=== PATIENT | male | born 1985 | race Caucasian/White ===

== ENCOUNTER 2016-08-10 11:11 | Inpatient (IN) | payer OTHER ==
[2016-08-10 11:34] VITALS: BMI 26.6
--- NOTE | 2016-08-10 13:40 | HP ---
CIWA Score - CIWA Score Nausea/Vomitin-Int. Nausea w/Dry Heave (AND DIARRHEA) Muscle Tremors: 4-Moderate,w/Arms Extend Anxiety: 4-Mod. Anxious/Guarded Agitation: 4-Moderately Restless Paroxysmal Sweats: 1-Minimal Palms Moist Orientation: 0-Oriented Tacttile Disturbances: 3-Moderate Itch/Numb/Burn Auditory Disturbances: 0-None Visual Disturbances: 0-None Headache: 0-None Present CIWA-Ar Total Score: 20 Admission [facility] - HPI Chief Complaint: DETOX TX FOR BENZO DEPENDENCE . Allergies/Adverse Reactions: Allergies Allergy/AdvReac Type Severity Reaction Status Date / Time No Known Allergies Allergy Verified 08/10/16 12:35 History of Present Illness: 31 Y/O MALE WITH A HX OF XANAX AND KLONOPIN AND CRACK/COCAINE AND MARIJUANA DEPENDENCE SEEKING DETOX TX. PT ON [facility]-MMTP 90 MG PO DAILY. Exam Limitations: No Limitations - Ebola screening Have you traveled outside of the country in the last 21 days: No Have you had contact with anyone from an Ebola affected area: No Have you been sick,other than usual withdrawal symptoms: No Do you have a fever: No - Review of Systems Constitutional: Chills, Night Sweats, Changes in sleep, Unintentional Wgt. Loss EENT: reports: Tearing, Nose Congestion, Dental Problems Respiratory: reports: SOB with Exertion (WHEN WALKING.) Cardiac: reports: Lightheadedness GI: reports: Diarrhea, Nausea, Vomiting, Indigestion, Abdominal cramping : reports: No Symptoms Reported Musculoskeletal: reports: Back Pain, Joint Pain, Muscle Pain Integumentary: reports: Lesions (GENERALIZED SKIN BREAKOUTS---WHEN USING CRACK/ COCAINE.) Neuro: reports: Seizure, Tremors, Unsteady Gait, Dizziness Endocrine: reports: No Symptoms Reported Hematology: reports: Anemia (NO MED) Psychiatric: reports: Orientated x3, Agitated, Anxious, Depressed (ON PROZAC) Other Systems: Reviewed and Negative Patient History - Patient Medical History Hx Anemia: No Hx Asthma: No Hx Chronic Obstructive Pulmonary Disease (COPD): No Hx Cancer: No Hx Cardiac Disorders: No Hx Congestive Heart Failure: No Hx Hypertension: Yes Hx Hypercholesterolemia: No Hx Pacemaker: No HX Cerebrovascular Accident: No Hx Seizures: Yes (xanax related last 01/21) Hx Diabetes: No Hx Gastrointestinal Disorders: No Hx Liver Disease: No Hx Genitourinary Disorders: No Hx Sexually Transmitted Disorders: No Hx Renal Disease (ESRD): No Hx Thyroid Disease: No Hx Human Immunodeficiency Virus (HIV): No (NEGATIVE HX last 05/23) Hx Hepatitis C: Yes (TREATED IN 2009) Hx Depression: Yes (ON PROZAC) Hx Suicide Attempt: Yes (tried to overdose at age 18 yrs old;DENIES CURRENT IDEATIONS) Hx Bipolar Disorder: No Hx Schizophrenia: No - Patient Surgical History Past Surgical History: Yes Hx Neurologic Surgery: No Hx Cataract Extraction: No Hx Cardiac Surgery: No Hx Lung Surgery: No Hx Breast Surgery: No Hx Breast Biopsy: No Hx Abdominal Surgery: No Hx Appendectomy: No Hx Cholecystectomy: No Hx Genitourinary Surgery: No Hx Section: No Hx Orthopedic Surgery: Yes (RIGHT CLAVICLE /CHEST DUE TO ABCESS) Other Surgical History: ADNOIDECTOMY AT 13 Y/O Anesthesia Reaction: No - PPD History Previous Implant?: Yes Documented Results: Negative w/o proof Implanted On Prior [facility] Admission?: Yes Date: 06/02/15 Results: 0 mm PPD to be Administered?: Yes - Reproductive History Patient is a Female of Child Bearing Age (11 -55 yrs old): No (MALE) - Smoking Cessation Smoking history: Current every day smoker Have you smoked in the past 12 months: Yes Aproximately how many cigarettes per day: 10 Hx Chewing Tobacco Use: No Initiated information on smoking cessation: Yes 'Breaking Loose' booklet given: 08/10/16 - Substance & Tx. History Hx Alcohol Use: No (DENIES) Hx Substance Use: Yes (XANAX/KLONOPIN/COCAINE/MARIJUANA) Substance Use Type: Alcohol, Cocaine, Marijuana Hx Substance Use Treatment: Yes ([facility]-MMTP/DETOX) - Substances Abused Alprazolam (Xanax) Route: Oral Frequency: Daily Amount used: 8-10MG Age of first use: 26 Date of Last Use: 08/09/16 Crack Route: Smoking Frequency: Daily Amount used: 1 GRAM Age of first use: 27 Date of Last Use: 08/09/16 Marijuana/Hashish Route: Smoking Frequency: 1-2 times per week Amount used: $5 Age of first use: 11 Date of Last Use: 08/09/16 Family Disease History - Family Disease History Family History: Denies Admission Physical Exam [facility] - Vital Signs Vital Signs: Vital Signs - 24 hr 08/10/16 11:32 Temperature 96.5 F L Pulse Rate 61 Respiratory 18 Rate Blood Pressure 133/81 - Physical General Appearance: Yes: Moderate Distress, Irritable, Anxious HEENTM: Yes: EOMI, Normocephalic, FRAN, Pharynx Normal Respiratory: Yes: Chest Non-Tender, Lungs Clear, Normal Breath Sounds, No Respiratory Distress Breast: Yes: Breast Exam Deferred Cardiology: Yes: Regular Rhythm, Regular Rate, S1, S2 Abdominal: Yes: Normal Bowel Sounds, Non Tender, Soft Genitourinary: Yes: Other (N/C) Extremities: Yes: Normal Range of Motion, Non-Tender, Tremors 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, Fully Oriented, Alert Integumentary: Yes: Dry, Warm Lymphatic: Yes: Within Normal Limits - Diagnostic (1) Marijuana dependence Current Visit: Yes Status: Acute (2) Nicotine dependence Current Visit: Yes Status: Chronic Qualifiers: Nicotine product type: cigarettes Substance use status: uncomplicated Qualified Code(s): F17.210 - Nicotine dependence, cigarettes, uncomplicated (3) Hepatitis C Current Visit: Yes Status: Chronic Qualifiers: Viral hepatitis chronicity: chronic (4) Hypertension Current Visit: Yes Status: Chronic Qualifiers: Hypertension type: essential hypertension Qualified Code(s): I10 - Essential (primary) hypertension (5) Low back pain Current Visit: Yes Status: Chronic Qualifiers: Back pain laterality: unspecified (6) Methadone maintenance therapy patient Current Visit: Yes Status: Chronic Comment: pt is on methadone 90mg last dose given today; pending verification (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
[2016-08-10] MEDS ORDERED: MAGNESIUM HYDROX 2400MG/30ML ORAL SUSPENSION 30 ML CUP PO PRN (13:51)
[2016-08-10] MEDS ORDERED: NICOTINE POLACRILEX 2 MG GUM BUC PRN (13:51)
[2016-08-10] MEDS ORDERED: MENTHOL/PHENOL 1 EACH UD MM PRN (13:51)
[2016-08-10] MEDS ORDERED: LOPERAMIDE HCL 2 MG CAPSULE PO PRN (13:51)
[2016-08-10] MEDS ORDERED: IBUPROFEN 400 MG TABLET (FP) PO PRN (13:51)
[2016-08-10] MEDS ORDERED: MAG HYDROX/AL HYDROX/SIMETH 30 ML UNIT-DOSE CUP PO PRN (13:51)
[2016-08-10] MEDS ORDERED: guaiFENesin/D-METHORPHAN HB 10 ML UNIT-DOSE CUPS PO PRN (13:51)
[2016-08-10] MEDS ORDERED: MAGNESIUM CITRATE 300 ML BOTTLE PO PRN (13:51)
[2016-08-10] MEDS ORDERED: P-EPHED 60MG/TRIPROLIDI 2.5MG TABLET PO PRN (13:51)
[2016-08-10] MEDS ORDERED: ACETAMINOPHEN 325 MG TABLET (FP) PO PRN (13:51)
[2016-08-10] MEDS ORDERED: diazePAM 5 MG TABLET PO ONE (14:38)
[2016-08-10 15:24] LABS: HIV 1 & 2 AB NEGATIVE; HIV 1 AGp24 NEGATIVE
[2016-08-10] MEDS: NICOTINE 14 MG/24 HOURS TOPICAL PATCH TD SCH (15:45)
[2016-08-10 16:25] LABS: URINE APPEARANCE CLEAR; URINE BILIRUBIN NEGATIVE (NEGATIVE); URINE BLOOD NEGATIVE (NEGATIVE); URINE COLOR YELLOW; URINE GLUCOSE (UA) NEGATIVE (NEGATIVE); URINE KETONE NEGATIVE (NEGATIVE); URINE LEUK ESTERASE NEGATIVE (NEGATIVE); URINE NITRITE NEGATIVE (NEGATIVE); URINE PROTEIN NEGATIVE (NEGATIVE); URINE UROBILINOGEN NEGATIVE E.U./dl (0.2-1.0)
--- NOTE | 2016-08-10 16:28 | CONSULT ---
[facility] Psychiatric Consult - Data Date of interview: 08/10/16 Admission source: [facility] Identifying data: This is 31 years old male with history of Bipolar Disorder intoxicated with: Cannabis, Crack, Xanax and Nicotine Substance Abuse History: - Smoking Cessation. Smoking history: Current every day smoker. Have you smoked in the past 12 months: Yes. Aproximately how many cigarettes per day: 10. Hx Chewing Tobacco Use: No. Initiated information on smoking cessation: Yes. 'Breaking Loose' booklet given: 08/10/16. - Substance & Tx. History. Hx Alcohol Use: No (DENIES). Hx Substance Use: Yes (XANAX/ KLONOPIN/COCAINE/MARIJUANA). Substance Use Type: Alcohol, Cocaine, Marijuana. Hx Substance Use Treatment: Yes ([email or web address]MMTP/DETOX). - Substances Abused. Alprazolam (Xanax). Route: Oral. Frequency: Daily. Amount used: 8-10MG. Age of first use: 26. Date of Last Use: 08/09/16. Crack. Route: Smoking. Frequency: Daily. Amount used: 1 GRAM. Age of first use: 27. Date of Last Use : 08/09/16. Marijuana/Hashish. Route: Smoking. Frequency: 1-2 times per week. Amount used: $5. Age of first use: 11. Date of Last Use: 08/09/16 Medical History: Hep C+, HTNM, LBP, Seizure history, MMTP 90mg per day Psychiatric History: Patient reports history of Bipolar disorder, history of PTSD, reports psychiatric hospitalization history with most recent admission on more then 10 years ago, reports currently taking: Gabapentin 400mg po tid. Prozac 40mg poqd. Clonodone 0,2 po bid Physical/Sexual Abuse/Trauma History: Denies Additional Comment: Gabapentin 400mg po tid. Prozac 40mg poqd. Clonodone 0,2 po bid Mental Status Exam - Mental Status Exam Alert and Oriented to: Person Cognitive Function: Fair Patient Appearance: Well Groomed Mood: Nervous, Anxious Affect: Mood Congruent Patient Behavior: Cooperative Speech Pattern: Appropriate Voice Loudness: Normal Thought Process: Goal Oriented Thought Disorder: Being Controlled Hallucinations: Denies Suicidal Ideation: Denies Homicidal Ideation: Denies Insight/Judgement: Fair Sleep: Difficulty falling asleep Appetite: Fair Muscle strength/Tone: Normal Gait/Station: Normal Additional Comments: Gabapentin 400mg po tid. Prozac 40mg poqd. Clonodone 0,2 po bid Psychiatric Findings - Problem List ([place] 1, 2,3) (1) Marijuana dependence Current Visit: Yes Status: Acute (2) Methadone maintenance therapy patient Current Visit: Yes Status: Chronic Comment: pt is on methadone 90mg last dose given today; pending verification (3) Nicotine dependence Current Visit: Yes Status: Chronic Qualifiers: Nicotine product type: cigarettes Substance use status: uncomplicated Qualified Code(s): F17.210 - Nicotine dependence, cigarettes, uncomplicated (4) Sedative/hypnotic withdrawal without complication Current Visit: Yes Status: Chronic (5) Substance or medication-induced sleep disorder, insomnia type Current Visit: No Status: Acute (6) Borderline personality disorder Current Visit: No Status: Chronic (7) PTSD (post-traumatic stress disorder) Current Visit: No Status: Chronic (8) Bipolar II disorder Current Visit: No Status: Suspected - Initial Treatment Plan Initial Treatment Plan: Gabapentin 400mg po tid. Prozac 40mg poqd. Clonodone 0 ,2 po bid
[2016-08-10] MEDS: diazePAM 5 MG TABLET PO PRN (20:42)
[2016-08-10] MEDS: diazePAM 5 MG TABLET PO SCH (22:55)
[2016-08-10] MEDS: THIAMINE HCL 100 MG TABLET (FP) PO SCH (22:55)
[2016-08-10] MEDS: cloNIDine HCL 0.1 MG TABLET PO SCH (22:59)
[2016-08-10] MEDS: GABAPENTIN 400 MG CAPSULE (FP) PO SCH (23:00)
[2016-08-10] MEDS: PROPRANOLOL HCL 20 MG TABLET PO SCH (23:00)
[2016-08-10] MEDS: PRAZOSIN HCL 5 MG CAPSULE PO SCH (23:01)
[2016-08-11] MEDS: diazePAM 5 MG TABLET PO SCH ×3 (05:20→22:47)
[2016-08-11] MEDS: GABAPENTIN 400 MG CAPSULE (FP) PO SCH ×3 (05:21→22:22)
[2016-08-11] MEDS: diazePAM 5 MG TABLET PO PRN ×4 (08:30→22:22)
[2016-08-11] MEDS ORDERED: METHADONE HCL 10 MG TABLET PO ONE (08:42)
[2016-08-11] MEDS ORDERED: METHADONE 80 MG, METHADONE 10 MG PO ONE (09:06)
[2016-08-11] MEDS ORDERED: METHADONE HCL 10 MG TABLET ONE (09:13)
[2016-08-11] MEDS ORDERED: METHADONE HCL 40 MG DISPERSABLE TABLET ONE (09:13)
[2016-08-11 09:15] LABS: MCH 29.7 pg (25.7-33.7); MCHC 33.7 g/dl (32.0-35.9); MEAN PLT VOLUME 9.9 fl (7.5-11.1); PLATELET COUNT 249 K/MM3 (134-434); RDW 13.1 % (11.9-15.9); WHITE BLOOD COUNT 7.1 K/mm3 (4.0-10.0)
[2016-08-11 09:21] LABS: ALBUMIN 3.5 g/dl (3.4-5.0); ANION GAP 9 (8-16); CALCIUM 9.6 mg/dL (8.5-10.1); CO2 28 mmol/L (21-32); GLUCOSE,RANDOM 128 mg/dL (74-106); SGOT/AST 93 U/L (15-37); SGPT/ALT 154 U/L (12-78)
[2016-08-11 09:23] LABS: ALK PHOS 135 U/L (45-117); BILIRUBIN,TOTAL 0.3 mg/dL (0.2-1.0); CREATININE 0.7 mg/dL (0.7-1.3); TOT PROT 8.8 g/dl (6.4-8.2)
[2016-08-11] MEDS: PRENATAL VITAMINS W/ FOLIC ACID TABLET (FP) PO SCH (10:10)
[2016-08-11] MEDS: cloNIDine HCL 0.1 MG TABLET PO SCH (10:10)
[2016-08-11] MEDS: NICOTINE 14 MG/24 HOURS TOPICAL PATCH TD SCH (10:11)
[2016-08-11] MEDS: FLUoxetine HCL 20 MG CAPSULE (FP) PO SCH (10:11)
[2016-08-11] MEDS: PROPRANOLOL HCL 20 MG TABLET PO SCH ×2 (10:11→22:22)
--- NOTE | 2016-08-11 11:29 | PN ---
S CIWA - CIWA Score Nausea/Vomitin Muscle Tremors: 3 Anxiety: 3 Agitation: 2 Paroxysmal Sweats: 1-Minimal Palms Moist Orientation: 0-Oriented Tacttile Disturbances: 1-Very Mild Itch/Numbness Auditory Disturbances: 1-Very Mild Visual Disturbances: 1-Very Mild Sensitivity Headache: 2-Mild CIWA-Ar Total Score: 17 [facility] Progress Note (SOAP) Subjective: ALERT,IRRITABLE,ANXIOUS,INTERRUPTED SLEEP,TREMOR, Objective: 08/11/16 11:23 Vital Signs Temperature 97.0 F L 08/11/16 06:00 Pulse Rate 110 H 08/11/16 06:00 Respiratory Rate 18 08/11/16 06:00 Blood Pressure 102/58 08/11/16 06:00 O2 Sat by Pulse Oximetry (%) EKG SINUS BRADYCARDIA,58/MIN NO CHEST PAIN,NO SOB,NO DIZZINESS 08/11/16 11:24 Laboratory Last Values WBC 7.1 K/mm3 (4.0-10.0) 08/11/16 06:05 RBC 4.52 M/mm3 (4.00-5.60) 08/11/16 06:05 Hgb 13.4 GM/dL (11.7-16.9) 08/11/16 06:05 Hct 39.8 % (35.4-49) 08/11/16 06:05 MCV 88.0 fl (80-96) 08/11/16 06:05 MCHC 33.7 g/dl (32.0-35.9) 08/11/16 06:05 RDW 13.1 % (11.9-15.9) 08/11/16 06:05 Plt Count 249 K/MM3 (134-434) D 08/11/16 06:05 MPV 9.9 fl (7.5-11.1) D 08/11/16 06:05 Sodium 140 mmol/L (136-145) 08/11/16 06:05 Potassium 4.2 mmol/L (3.5-5.1) 08/11/16 06:05 Chloride 103 mmol/L (98-107) 08/11/16 06:05 Carbon Dioxide 28 mmol/L (21-32) 08/11/16 06:05 Anion Gap 9 (8-16) 08/11/16 06:05 BUN 18 mg/dL (7-18) 08/11/16 06:05 Creatinine 0.7 mg/dL (0.7-1.3) 08/11/16 06:05 Creat Clearance w eGFR > 60 (>60) 08/11/16 06:05 Random Glucose 128 mg/dL (74-106) H D 08/11/16 06:05 Calcium 9.6 mg/dL (8.5-10.1) 08/11/16 06:05 Total Bilirubin 0.3 mg/dL (0.2-1.0) D 08/11/16 06:05 AST 93 U/L (15-37) H D 08/11/16 06:05 ALT 154 U/L (12-78) H D 08/11/16 06:05 Alkaline Phosphatase 135 U/L (45-117) H 08/11/16 06:05 Total Protein 8.8 g/dl (6.4-8.2) H 08/11/16 06:05 Albumin 3.5 g/dl (3.4-5.0) 08/11/16 06:05 Urine Color Yellow 08/10/16 13:00 Urine Appearance Clear 08/10/16 13:00 Urine pH 5.0 (5.0-8.0) 08/10/16 13:00 Ur Specific [place] 1.019 (1.001-1.035) 08/10/16 13:00 Urine Protein Negative (NEGATIVE) 08/10/16 13:00 Urine Glucose (UA) Negative (NEGATIVE) 08/10/16 13:00 Urine Ketones Negative (NEGATIVE) 08/10/16 13:00 Urine Blood Negative (NEGATIVE) 08/10/16 13:00 Urine Nitrite Negative (NEGATIVE) 08/10/16 13:00 Urine Bilirubin Negative (NEGATIVE) 08/10/16 13:00 Urine Urobilinogen Negative E.U./dl (0.2-1.0) 08/10/16 13:00 Ur Leukocyte Esterase Negative (NEGATIVE) 08/10/16 13:00 HIV 1&2 Antibody Screen Negative 08/10/16 12:00 HIV P24 Antigen Negative 08/10/16 12:00 08/11/16 11:26 Assessment: 08/11/16 11:25 WITHDRAWAL SYMPTOM CELLULITIS BOTH FORARMS Plan: CONTINUE DETOX,ALT 154.AST 93,D/C TYLENOL,REPEAT ALT,AST,INR IN AM
[2016-08-11] MEDS: BACITRACIN 0.9 GM PACKET TP SCH ×2 (12:11→22:21)
[2016-08-11] MEDS: CEPHALEXIN MONOHYDRATE 500 MG CAPSULE (UD) PO SCH ×2 (12:43→17:06)
[2016-08-11] MEDS: diphenhydrAMINE HCL 50 MG CAPSULE PO PRN (22:22)
[2016-08-11] MEDS: PRAZOSIN HCL 5 MG CAPSULE PO SCH (22:22)
[2016-08-11] MEDS: THIAMINE HCL 100 MG TABLET (FP) PO SCH (22:22)
[2016-08-12] MEDS: CEPHALEXIN MONOHYDRATE 500 MG CAPSULE (UD) PO SCH ×4 (00:31→17:58)
[2016-08-12] MEDS: cloNIDine HCL 0.1 MG TABLET PO SCH ×3 (00:31→22:44)
[2016-08-12] MEDS ORDERED: METHADONE HCL 10 MG TABLET ONE (04:58)
[2016-08-12] MEDS ORDERED: METHADONE HCL 40 MG DISPERSABLE TABLET ONE (04:58)
[2016-08-12] MEDS ORDERED: METHADONE HCL 10 MG TABLET PO SCH (06:00)
[2016-08-12] MEDS: METHADONE 80 MG, METHADONE 10 MG PO SCH (07:18)
[2016-08-12] MEDS: diazePAM 5 MG TABLET PO PRN ×3 (07:18→19:15)
[2016-08-12] MEDS: GABAPENTIN 400 MG CAPSULE (FP) PO SCH ×3 (07:19→22:47)
[2016-08-12 10:54] LABS: INR 1.03 (0.82-1.09); PROTHROMBIN TIME (PATIENT) 11.3 SEC (9.98-11.88)
[2016-08-12] MEDS: BACITRACIN 0.9 GM PACKET TP SCH ×2 (10:54→22:42)
[2016-08-12] MEDS: PROPRANOLOL HCL 20 MG TABLET PO SCH ×2 (10:54→22:47)
[2016-08-12] MEDS: PRENATAL VITAMINS W/ FOLIC ACID TABLET (FP) PO SCH (10:54)
[2016-08-12] MEDS: FLUoxetine HCL 20 MG CAPSULE (FP) PO SCH (10:54)
[2016-08-12] MEDS: diazePAM 5 MG TABLET PO SCH ×2 (10:54→22:45)
[2016-08-12] MEDS: NICOTINE 14 MG/24 HOURS TOPICAL PATCH TD SCH (10:55)
--- NOTE | 2016-08-12 12:31 | PN ---
S CIWA - CIWA Score Nausea/Vomitin Muscle Tremors: 3 Anxiety: 3 Agitation: 3 Paroxysmal Sweats: 1-Minimal Palms Moist Orientation: 0-Oriented Tacttile Disturbances: 1-Very Mild Itch/Numbness Auditory Disturbances: 1-Very Mild Visual Disturbances: 1-Very Mild Sensitivity Headache: 2-Mild CIWA-Ar Total Score: 18 BHS Progress Note (SOAP) Subjective: ALERT,IRRITABLE,ANXIOUS,INTERRUPTED SLEEP,TREMOR Objective: 08/12/16 12:30 Vital Signs Temperature 97.8 F 08/12/16 10:02 Pulse Rate 76 08/12/16 10:02 Respiratory Rate 18 08/12/16 10:02 Blood Pressure 145/69 08/12/16 10:02 O2 Sat by Pulse Oximetry (%) Assessment: 08/12/16 12:30 WITHDRAWAL SYMPTOM Plan: CONTINUE DETOX
[2016-08-12] MEDS: hydrOXYzine PAMOATE 25 MG CAPSULE (FP) PO PRN (14:07)
[2016-08-12] MEDS: THIAMINE HCL 100 MG TABLET (FP) PO SCH (22:44)
[2016-08-12] MEDS: PRAZOSIN HCL 5 MG CAPSULE PO SCH (22:47)
[2016-08-13] MEDS: CEPHALEXIN MONOHYDRATE 500 MG CAPSULE (UD) PO SCH ×5 (00:09→23:42)
[2016-08-13] MEDS: diazePAM 5 MG TABLET PO PRN ×2 (00:46→06:22)
[2016-08-13] MEDS: diphenhydrAMINE HCL 50 MG CAPSULE PO PRN (00:46)
[2016-08-13] MEDS ORDERED: METHADONE HCL 10 MG TABLET ONE (04:59)
[2016-08-13] MEDS ORDERED: METHADONE HCL 40 MG DISPERSABLE TABLET ONE (04:59)
[2016-08-13] MEDS: METHADONE 80 MG, METHADONE 10 MG PO SCH (06:21)
[2016-08-13] MEDS: GABAPENTIN 400 MG CAPSULE (FP) PO SCH ×3 (06:22→22:55)
[2016-08-13] MEDS: cloNIDine HCL 0.1 MG TABLET PO SCH ×2 (10:00→22:55)
[2016-08-13] MEDS: PROPRANOLOL HCL 20 MG TABLET PO SCH ×2 (10:00→22:55)
[2016-08-13] MEDS: FLUoxetine HCL 20 MG CAPSULE (FP) PO SCH (11:00)
[2016-08-13] MEDS: diazePAM 5 MG TABLET PO SCH ×2 (11:00→22:55)
[2016-08-13] MEDS: PRENATAL VITAMINS W/ FOLIC ACID TABLET (FP) PO SCH (11:00)
[2016-08-13] MEDS: BACITRACIN 0.9 GM PACKET TP SCH ×2 (11:00→22:55)
[2016-08-13] MEDS: NICOTINE 14 MG/24 HOURS TOPICAL PATCH TD SCH (11:01)
[2016-08-13] MEDS: SULFAMETHOXAZOLE/TRIMETHOPRIM 800MG/160MG D.S. TABLET PO SCH ×2 (11:04→22:55)
--- NOTE | 2016-08-13 11:39 | PN ---
S Progress Note (SOAP) Subjective: ALERT,IRRITABLE,ANXIOUS,INTERRUPTED SLEEP,PAIN IN THE LEFT FOREARM ABSCESS WITH DRAINAGE Objective: 08/13/16 11:37 Vital Signs Temperature 96.8 F L 08/13/16 10:42 Pulse Rate 79 08/13/16 10:42 Respiratory Rate 18 08/13/16 10:42 Blood Pressure 99/54 08/13/16 10:42 O2 Sat by Pulse Oximetry (%) Assessment: 08/13/16 11:37 WITHDRAWAL SYMPTOM Plan: CONTINUE DETOX,C/S FROM DRAINAGE FROM ABSCESS LEFT FOREARM,TO ADD BACTRIM DS 1 TAB PO BID TO KEFLEX
[2016-08-13] MEDS: hydrOXYzine PAMOATE 25 MG CAPSULE (FP) PO PRN ×2 (12:41→20:16)
[2016-08-13] MEDS: PRAZOSIN HCL 5 MG CAPSULE PO SCH (22:55)
[2016-08-13] MEDS: THIAMINE HCL 100 MG TABLET (FP) PO SCH (22:55)
[2016-08-14] MEDS ORDERED: diphenhydrAMINE HCL 25 MG CAPSULE (FP) PO ONE (02:02)
[2016-08-14] MEDS: diphenhydrAMINE HCL 50 MG CAPSULE PO PRN (02:04)
[2016-08-14] MEDS ORDERED: METHADONE HCL 10 MG TABLET ONE (03:15)
[2016-08-14] MEDS ORDERED: METHADONE HCL 40 MG DISPERSABLE TABLET ONE (03:16)
[2016-08-14] MEDS: METHADONE 80 MG, METHADONE 10 MG PO SCH (05:41)
[2016-08-14] MEDS: CEPHALEXIN MONOHYDRATE 500 MG CAPSULE (UD) PO SCH (05:42)
[2016-08-14] MEDS: GABAPENTIN 400 MG CAPSULE (FP) PO SCH (05:42)
[2016-08-14] MEDS: hydrOXYzine PAMOATE 25 MG CAPSULE (FP) PO PRN (05:44)
--- NOTE | 2016-08-14 08:37 | PN ---
S Progress Note (SOAP) Subjective: ALERT,NO COMPLAINT,NO PAIN AT THE SITE OF ABSCESS,LESS ERYTHEMA AND SWELLING Objective: 08/14/16 08:34 Vital Signs Temperature 97.2 F L 08/14/16 06:00 Pulse Rate 56 L 08/14/16 06:00 Respiratory Rate 18 08/14/16 06:00 Blood Pressure 109/58 08/14/16 06:00 O2 Sat by Pulse Oximetry (%) Assessment: 08/14/16 08:34 STABLE FOR DISCHARGE TODAY 08/14/16 08:36 Plan: DISCHARRGE,FOLLOW UP WITH AFTER CARE PROGRAM ARRANGEMENT AND PMD FOR MEDICAL PROBLEM
--- NOTE | 2016-08-14 08:40 | DS ---
[facility] Detox Discharge Summary Admission Date: 08/10/16 Discharge Date: 08/14/16 - History Present History: Sedative Dependence, MMTP Additional Comments: FOLLOW UP WITH AFTER CARE PROGRAM ARRANGEMENT AND PMD FOR MEDICAL PROBLEM, PATIENT IS AWARED C/S ABSCESS IS PENDING Pertinent Past History: HYPERTENSION HEPATITIS C LOW BACK PAIN SEIZURE CELLULITIS WITH ABSCESSS LEFT FOREARM - Physical Exam Results Vital Signs: Vital Signs Temperature 97.2 F L 08/14/16 06:00 Pulse Rate 56 L 08/14/16 06:00 Respiratory Rate 18 08/14/16 06:00 Blood Pressure 109/58 08/14/16 06:00 O2 Sat by Pulse Oximetry (%) - Medication Discharge Medications: Ambulatory Orders Prazosin HCl [Minipress -] 5 mg PO HS #30 capsule 06/01/15 Fluoxetine HCl [Prozac -] 40 mg PO DAILY #30 capusle 12/03/15 Clonidine HCl [Catapres] 0.2 mg PO BID #60 tablet 12/06/15 Propranolol HCl [Inderal -] 20 mg PO BID #60 tablet 12/06/15 Clonidine HCl [Catapres -] 0.2 mg PO BID #60 tablet 08/10/16 Fluoxetine HCl [Prozac -] 40 mg PO DAILY #60 capsule 08/10/16 Gabapentin [Neurontin -] 400 mg PO TID 08/10/16 Gabapentin [Neurontin -] 400 mg PO TID #90 capsule 08/10/16
--- NOTE | 2016-08-14 08:49 | PN ---
[facility] Progress Note Note: PATIENT WILL SEE HIS PMD FOR FOLLOW UP FOR ABSCESS LEFT FOREARM,HE IS AWARED THAT THE C,S IS PENDING,HE WILL SEE HIS PMD AND PSYCHIATRIST FOR FOLLOW UP
[2016-08-14] MEDS: BACITRACIN 0.9 GM PACKET TP SCH (09:13)
[2016-08-14] MEDS: SULFAMETHOXAZOLE/TRIMETHOPRIM 800MG/160MG D.S. TABLET PO SCH (09:13)
[2016-08-14] MEDS: cloNIDine HCL 0.1 MG TABLET PO SCH (09:13)
[2016-08-14] MEDS: FLUoxetine HCL 20 MG CAPSULE (FP) PO SCH (09:13)
[2016-08-14] MEDS: PROPRANOLOL HCL 20 MG TABLET PO SCH (09:14)
[2016-08-14] MEDS: PRENATAL VITAMINS W/ FOLIC ACID TABLET (FP) PO SCH (09:14)
[2016-08-14] MEDS ORDERED: diazePAM 5 MG TABLET PO SCH (10:00)
[2016-08-14 10:16] VITALS: BP 105/60; PULSE 73; TEMP 97.5
--- NOTE | 2016-08-14 14:08 | EKG ---
Test Reason : Blood Pressure : / mmHG Vent. Rate : 054 BPM Atrial Rate : 054 BPM P-R Int : 130 ms QRS Dur : 110 ms QT Int : 472 ms P-R-T Axes : 057 055 038 degrees QTc Int : 447 ms SINUS BRADYCARDIA WITH SINUS ARRHYTHMIA OTHERWISE NORMAL ECG NO PREVIOUS ECGS AVAILABLE Confirmed by VERONICA DUNNE MD ([id number]) on 08/14/2016 2:07:47 PM Referred By: Yonatan Schulz Confirmed By:VERONICA DUNNE MD
== END 2016-08-14 09:26 | disposition home or self-care (01) | DRG 773 ==
LOC: YASAS 11:11 → Y6N 13:29
PROVIDERS: ADMIT Internal Medicine Addiction Medicine; ATTEND Internal Medicine Addiction Medicine
PROC: HZ2ZZZZ Detoxification Services for Substance Abuse Treatment (ICD-10-PCS; principal; 2016-08-14)
DX: F11.20 Opioid dependence, uncomplicated (principal); F10.230 Alcohol dependence with withdrawal, uncomplicated; F12.20 Cannabis dependence, uncomplicated; F17.210 Nicotine dependence, cigarettes, uncomplicated; F19.282 Other psychoactive substance dependence with psychoactive substance-induced sleep disorder; F60.9 Personality disorder, unspecified; F43.10 Post-traumatic stress disorder, unspecified; F31.81 Bipolar II disorder; M54.5 Low back pain; G40.89 Other seizures
CPT/HCPCS: 36415; 80053; 81003; 84460; 85027; 85610; 86593; 87070; 87186; 87205; 87389; 93005; 93010

== ENCOUNTER 2017-12-24 11:36 | Inpatient (IN) | payer OTHER ==
[2017-12-24 13:42] VITALS: BMI 22.8
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
[2017-12-24] MEDS ORDERED: P-EPHED 60MG/TRIPROLIDI 2.5MG TABLET PO PRN (14:54)
[2017-12-24] MEDS ORDERED: guaiFENesin/D-METHORPHAN HB 10 ML UNIT-DOSE CUPS PO PRN (14:54)
[2017-12-24] MEDS ORDERED: MAGNESIUM HYDROX 2400MG/30ML ORAL SUSPENSION 30 ML CUP PO PRN (14:54)
[2017-12-24] MEDS ORDERED: MENTHOL/PHENOL 1 EACH UD MM PRN (14:54)
[2017-12-24] MEDS ORDERED: MAGNESIUM CITRATE 300 ML BOTTLE PO PRN (14:54)
[2017-12-24] MEDS ORDERED: LOPERAMIDE HCL 2 MG CAPSULE PO PRN (14:54)
[2017-12-24] MEDS ORDERED: ACETAMINOPHEN 325 MG TABLET (FP) PO PRN (14:54)
[2017-12-24] MEDS ORDERED: IBUPROFEN 400 MG TABLET (FP) PO PRN (14:54)
[2017-12-24] MEDS ORDERED: NICOTINE POLACRILEX 2 MG GUM BUC PRN (14:54)
[2017-12-24] MEDS ORDERED: MAG HYDROX/AL HYDROX/SIMETH 30 ML UNIT-DOSE CUP PO PRN (14:54)
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
[2017-12-24] MEDS ORDERED: diazePAM 5 MG TABLET PO ONE (15:30)
[2017-12-24] MEDS: diazePAM 5 MG TABLET PO PRN (21:32)
[2017-12-24] MEDS: NICOTINE 14 MG/24 HOURS TOPICAL PATCH TD SCH (21:32)
[2017-12-24] MEDS ORDERED: MELATONIN 5 MG TABLETS PO PRN (22:00)
[2017-12-24] MEDS: diazePAM 5 MG TABLET PO SCH (22:15)
[2017-12-24] MEDS: THIAMINE HCL 100 MG TABLET (FP) PO SCH (22:16)
[2017-12-24 23:09] LABS: URINE APPEARANCE CLEAR; URINE BILIRUBIN NEGATIVE (<2.0 mg/dL); URINE COLOR DKYELLOW; URINE GLUCOSE (UA) NEGATIVE (NEGATIVE); URINE KETONE NEGATIVE (NEGATIVE); URINE LEUK ESTERASE TRACE (NEGATIVE); URINE NITRITE NEGATIVE (NEGATIVE); URINE PROTEIN NEGATIVE (NEGATIVE); URINE UROBILINOGEN 4.0 E.U/dl mg/dL (0.2-1.0)
[2017-12-24 23:16] LABS: EPI CELLS RARE /HPF (FEW); URINE MUCUS MANY
[2017-12-25] MEDS: diazePAM 5 MG TABLET PO SCH ×3 (05:20→22:12)
[2017-12-25] MEDS ORDERED: METHADONE HCL 10 MG TABLET PO SCH (07:00)
[2017-12-25] MEDS ORDERED: METHADONE HCL 10 MG TABLET ONE (07:23)
[2017-12-25] MEDS ORDERED: METHADONE HCL 40 MG DISPERSABLE TABLET ONE (07:24)
[2017-12-25] MEDS: METHADONE 80 MG, METHADONE 10 MG PO SCH (07:30)
[2017-12-25] MEDS: diazePAM 5 MG TABLET PO PRN ×3 (07:30→16:33)
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
[2017-12-25 10:04] LABS: HEMATOCRIT 35.3 % (35.4-49); MCHC 33.9 g/dl (32.0-35.9); MEAN CELL VOLUME 85.7 fl (80-96); MEAN PLT VOLUME 9.3 fl (7.5-11.1); PLATELET COUNT 159 K/MM3 (134-434); RBC 4.12 M/mm3 (4.00-5.60); RDW 14.6 % (11.9-15.9); WHITE BLOOD COUNT 5.1 K/mm3 (4.0-10.0)
[2017-12-25] MEDS: PRENATAL VITAMINS W/ FOLIC ACID TABLET (FP) PO SCH (10:04)
[2017-12-25] MEDS: NICOTINE 14 MG/24 HOURS TOPICAL PATCH TD SCH (10:04)
[2017-12-25] MEDS: FLUoxetine HCL 20 MG CAPSULE (FP) PO SCH (10:05)
[2017-12-25 10:17] LABS: CHLORIDE 107 mmol/L (98-107); POTASSIUM 3.8 mmol/L (3.5-5.1); SODIUM 143 mmol/L (136-145)
[2017-12-25 11:04] LABS: ALBUMIN 2.8 g/dl (3.4-5.0); ALK PHOS 92 U/L (45-117); ANION GAP 8 (8-16); BILIRUBIN,TOTAL 0.3 mg/dL (0.2-1.0); BLOOD UREA NITROGEN 22 mg/dL (7-18); CALCIUM 8.5 mg/dL (8.5-10.1); CO2 28 mmol/L (21-32); CREATININE 0.8 mg/dL (0.7-1.3); GLUCOSE,RANDOM 118 mg/dL (74-106); SGOT/AST 15 U/L (15-37); SGPT/ALT 16 U/L (12-78); TOT PROT 6.5 g/dl (6.4-8.2)
[2017-12-25] MEDS: BACITRACIN 0.9 GM PACKET TP SCH ×2 (12:03→22:11)
[2017-12-25] MEDS ORDERED: GABAPENTIN 100 MG CAPSULE (FP) PO SCH ×2 (14:00)
--- NOTE | 2017-12-25 14:18 | EKG ---
Test Reason : Blood Pressure : / mmHG Vent. Rate : 051 BPM Atrial Rate : 051 BPM P-R Int : 126 ms QRS Dur : 110 ms QT Int : 450 ms P-R-T Axes : 027 064 053 degrees QTc Int : 414 ms SINUS BRADYCARDIA WITH SINUS ARRHYTHMIA OTHERWISE NORMAL ECG WHEN COMPARED WITH ECG OF 10-AUG-2016 15:52, NO SIGNIFICANT CHANGE WAS FOUND Confirmed by MD Mike, Sebastián ([id number]) on 12/25/2017 2:18:02 PM Referred By: Confirmed By:Sebastián Mckeon MD
--- NOTE | 2017-12-25 14:23 | PN ---
[facility] CIWA - CIWA Score Nausea/Vomitin-No Nausea/No Vomiting Muscle Tremors: 4-Moderate,w/Arms Extend Anxiety: 4-Mod. Anxious/Guarded Agitation: 3 Paroxysmal Sweats: No Perspiration Orientation: 0-Oriented Tacttile Disturbances: 2-Mild Itch/Numbness/Burn Auditory Disturbances: 1-Very Mild Visual Disturbances: 2-Mild Sensitivity Headache: 0-None Present CIWA-Ar Total Score: 16 S Progress Note (SOAP) Subjective: Anxious, Tremors, H/A, Interrupted Sleep. Objective: PATIENT A & O X 3, OBSERVED AMBULATING ON UNIT. NO ACUTE DISTRESS. 12/25/17 14:21 Vital Signs Temperature 96.6 F L 12/25/17 14:15 Pulse Rate 68 12/25/17 14:15 Respiratory Rate 18 12/25/17 14:15 Blood Pressure 109/62 12/25/17 14:15 O2 Sat by Pulse Oximetry (%) Laboratory Tests 12/24/17 12/25/17 12/25/17 Unknown 07:00 07:00 WBC 5.1 RBC 4.12 Hgb 12.0 D Hct 35.3 L MCV 85.7 MCH 29.0 MCHC 33.9 RDW 14.6 Plt Count 159 D MPV 9.3 Sodium 143 Potassium 3.8 Chloride 107 Carbon Dioxide 28 Anion Gap 8 BUN 22 H D Creatinine 0.8 D Creat Clearance w eGFR > 60 Random Glucose 118 H D Calcium 8.5 Total Bilirubin 0.3 D AST 15 D ALT 16 Alkaline Phosphatase 92 Total Protein 6.5 D Albumin 2.8 L Urine Color Dkyellow Urine Appearance Clear Urine pH 5.0 D Ur Specific [place] 1.032 Urine Protein Negative Urine Glucose (UA) Negative Urine Ketones Negative Urine Blood Negative Urine Nitrite Negative Urine Bilirubin Negative Urine Urobilinogen 4.0 e.u/dl Ur Leukocyte Esterase Trace Urine WBC (Auto) 8 Urine RBC (Auto) None Ur Epithelial Cells Rare Urine Mucus Many RPR Titer 12/25/17 07:00 WBC RBC Hgb Hct MCV MCH MCHC RDW Plt Count MPV Sodium Potassium Chloride Carbon Dioxide Anion Gap BUN Creatinine Creat Clearance w eGFR Random Glucose Calcium Total Bilirubin AST ALT Alkaline Phosphatase Total Protein Albumin Urine Color Urine Appearance Urine pH Ur Specific [place] Urine Protein Urine Glucose (UA) Urine Ketones Urine Blood Urine Nitrite Urine Bilirubin Urine Urobilinogen Ur Leukocyte Esterase Urine WBC (Auto) Urine RBC (Auto) Ur Epithelial Cells Urine Mucus RPR Titer Nonreactive LABS NOTED. Assessment: 12/25/17 14:22 WITHDRAWAL SYMPTOMS. Plan: CONTINUE DETOX. INCREASE DAILY PO FLUID INTAKE.
[2017-12-25] MEDS: PRAZOSIN HCL 5 MG CAPSULE PO SCH (22:11)
[2017-12-25] MEDS: THIAMINE HCL 100 MG TABLET (FP) PO SCH (22:12)
[2017-12-26] MEDS ORDERED: METHADONE HCL 40 MG DISPERSABLE TABLET ONE (04:44)
[2017-12-26] MEDS ORDERED: METHADONE HCL 10 MG TABLET ONE (04:44)
[2017-12-26] MEDS: METHADONE 80 MG, METHADONE 10 MG PO SCH (05:58)
[2017-12-26] MEDS: diazePAM 5 MG TABLET PO PRN ×3 (06:04→16:37)
[2017-12-26] MEDS: BACITRACIN 0.9 GM PACKET TP SCH ×2 (10:15→22:21)
[2017-12-26] MEDS: FLUoxetine HCL 20 MG CAPSULE (FP) PO SCH (10:15)
[2017-12-26] MEDS: GABAPENTIN 100 MG CAPSULE (FP) PO SCH (10:15)
[2017-12-26] MEDS: PRENATAL VITAMINS W/ FOLIC ACID TABLET (FP) PO SCH (10:16)
[2017-12-26] MEDS: diazePAM 5 MG TABLET PO SCH ×2 (10:16→22:21)
[2017-12-26] MEDS: NICOTINE 14 MG/24 HOURS TOPICAL PATCH TD SCH (10:16)
[2017-12-26] MEDS: cloNIDine HCL 0.1 MG TABLET PO SCH (10:16)
[2017-12-26] MEDS: CYCLOBENZAPRINE HCL 10 MG TABLET (FP) PO PRN ×2 (11:58→22:21)
--- NOTE | 2017-12-26 12:14 | PN ---
S CIWA - CIWA Score Nausea/Vomitin-No Nausea/No Vomiting Muscle Tremors: 3 Anxiety: 5 Agitation: 3 Paroxysmal Sweats: No Perspiration Orientation: 0-Oriented Tacttile Disturbances: 2-Mild Itch/Numbness/Burn Auditory Disturbances: 0-None Visual Disturbances: 2-Mild Sensitivity Headache: 0-None Present CIWA-Ar Total Score: 15 [facility] Progress Note (SOAP) Subjective: Tremors, Interrupted Sleep, Fatigue, Anxious. Objective: PATIENT A & O X 3, OBSERVED AMBULATING ON UNIT. NO ACUTE DISTRESS. 12/26/17 12:13 Vital Signs Temperature 97.2 F L 12/26/17 09:14 Pulse Rate 75 12/26/17 09:14 Respiratory Rate 18 12/26/17 09:14 Blood Pressure 103/69 12/26/17 09:14 O2 Sat by Pulse Oximetry (%) Laboratory Tests 12/24/17 12/25/17 12/25/17 Unknown 07:00 07:00 WBC 5.1 RBC 4.12 Hgb 12.0 D Hct 35.3 L MCV 85.7 MCH 29.0 MCHC 33.9 RDW 14.6 Plt Count 159 D MPV 9.3 Sodium 143 Potassium 3.8 Chloride 107 Carbon Dioxide 28 Anion Gap 8 BUN 22 H D Creatinine 0.8 D Creat Clearance w eGFR > 60 Random Glucose 118 H D Calcium 8.5 Total Bilirubin 0.3 D AST 15 D ALT 16 Alkaline Phosphatase 92 Total Protein 6.5 D Albumin 2.8 L Urine Color Dkyellow Urine Appearance Clear Urine pH 5.0 D Ur Specific [place] 1.032 Urine Protein Negative Urine Glucose (UA) Negative Urine Ketones Negative Urine Blood Negative Urine Nitrite Negative Urine Bilirubin Negative Urine Urobilinogen 4.0 e.u/dl Ur Leukocyte Esterase Trace Urine WBC (Auto) 8 Urine RBC (Auto) None Ur Epithelial Cells Rare Urine Mucus Many RPR Titer 12/25/17 07:00 WBC RBC Hgb Hct MCV MCH MCHC RDW Plt Count MPV Sodium Potassium Chloride Carbon Dioxide Anion Gap BUN Creatinine Creat Clearance w eGFR Random Glucose Calcium Total Bilirubin AST ALT Alkaline Phosphatase Total Protein Albumin Urine Color Urine Appearance Urine pH Ur Specific [place] Urine Protein Urine Glucose (UA) Urine Ketones Urine Blood Urine Nitrite Urine Bilirubin Urine Urobilinogen Ur Leukocyte Esterase Urine WBC (Auto) Urine RBC (Auto) Ur Epithelial Cells Urine Mucus RPR Titer Nonreactive LABS NOTED. Assessment: 12/26/17 12:13 WITHDRAWAL SYMPTOMS. Plan: CONTINUE DETOX. INCREASE DAILY PO FLUID INTAKE. ENCOURAGE AMBULATION.
[2017-12-26] MEDS: THIAMINE HCL 100 MG TABLET (FP) PO SCH (22:21)
[2017-12-26] MEDS: PRAZOSIN HCL 5 MG CAPSULE PO SCH (22:22)
[2017-12-27] MEDS ORDERED: METHADONE HCL 10 MG TABLET ONE (04:41)
[2017-12-27] MEDS ORDERED: METHADONE HCL 40 MG DISPERSABLE TABLET ONE (04:41)
[2017-12-27] MEDS: METHADONE 80 MG, METHADONE 10 MG PO SCH (05:23)
[2017-12-27] MEDS: diazePAM 5 MG TABLET PO PRN ×2 (05:24→12:16)
[2017-12-27] MEDS: FLUoxetine HCL 20 MG CAPSULE (FP) PO SCH (10:14)
[2017-12-27] MEDS: BACITRACIN 0.9 GM PACKET TP SCH ×2 (10:14→22:34)
[2017-12-27] MEDS: NICOTINE 14 MG/24 HOURS TOPICAL PATCH TD SCH (10:15)
[2017-12-27] MEDS: GABAPENTIN 100 MG CAPSULE (FP) PO SCH (10:15)
[2017-12-27] MEDS: PRENATAL VITAMINS W/ FOLIC ACID TABLET (FP) PO SCH (10:15)
[2017-12-27] MEDS: diazePAM 5 MG TABLET PO SCH ×2 (10:15→22:34)
[2017-12-27] MEDS: cloNIDine HCL 0.1 MG TABLET PO SCH (10:15)
--- NOTE | 2017-12-27 16:15 | PN ---
[facility] Progress Note (SOAP) Subjective: Body Aches, Sweating, Tremors, Fatigue, Constipation. Objective: PATIENT A & O X 3, OBSERVED AMBULATING ON UNIT. NO ACUTE DISTRESS. 12/27/17 16:12 Vital Signs Temperature 97 F L 12/27/17 13:12 Pulse Rate 90 12/27/17 13:12 Respiratory Rate 20 12/27/17 13:12 Blood Pressure 80/63 12/27/17 13:12 O2 Sat by Pulse Oximetry (%) Laboratory Tests 12/24/17 12/25/17 12/25/17 Unknown 07:00 07:00 WBC 5.1 RBC 4.12 Hgb 12.0 D Hct 35.3 L MCV 85.7 MCH 29.0 MCHC 33.9 RDW 14.6 Plt Count 159 D MPV 9.3 Sodium 143 Potassium 3.8 Chloride 107 Carbon Dioxide 28 Anion Gap 8 BUN 22 H D Creatinine 0.8 D Creat Clearance w eGFR > 60 Random Glucose 118 H D Calcium 8.5 Total Bilirubin 0.3 D AST 15 D ALT 16 Alkaline Phosphatase 92 Total Protein 6.5 D Albumin 2.8 L Urine Color Dkyellow Urine Appearance Clear Urine pH 5.0 D Ur Specific [place] 1.032 Urine Protein Negative Urine Glucose (UA) Negative Urine Ketones Negative Urine Blood Negative Urine Nitrite Negative Urine Bilirubin Negative Urine Urobilinogen 4.0 e.u/dl Ur Leukocyte Esterase Trace Urine WBC (Auto) 8 Urine RBC (Auto) None Ur Epithelial Cells Rare Urine Mucus Many RPR Titer 12/25/17 07:00 WBC RBC Hgb Hct MCV MCH MCHC RDW Plt Count MPV Sodium Potassium Chloride Carbon Dioxide Anion Gap BUN Creatinine Creat Clearance w eGFR Random Glucose Calcium Total Bilirubin AST ALT Alkaline Phosphatase Total Protein Albumin Urine Color Urine Appearance Urine pH Ur Specific [place] Urine Protein Urine Glucose (UA) Urine Ketones Urine Blood Urine Nitrite Urine Bilirubin Urine Urobilinogen Ur Leukocyte Esterase Urine WBC (Auto) Urine RBC (Auto) Ur Epithelial Cells Urine Mucus RPR Titer Nonreactive LABS NOTED. Assessment: 12/27/17 16:12 WITHDRAWAL SYMPTOMS. Plan: CONTINUE DETOX. INCREASE DAILY PO FLUID INTAKE. PATIENT SCHEDULED FRO D/C TOMORROW.
[2017-12-27] MEDS: CYCLOBENZAPRINE HCL 10 MG TABLET (FP) PO PRN (22:33)
[2017-12-27] MEDS: PRAZOSIN HCL 5 MG CAPSULE PO SCH (22:33)
[2017-12-27] MEDS: THIAMINE HCL 100 MG TABLET (FP) PO SCH (22:33)
[2017-12-28] MEDS ORDERED: METHADONE HCL 10 MG TABLET ONE (04:50)
[2017-12-28] MEDS ORDERED: METHADONE HCL 40 MG DISPERSABLE TABLET ONE (04:51)
[2017-12-28] MEDS: METHADONE 80 MG, METHADONE 10 MG PO SCH (05:13)
[2017-12-28 05:27] VITALS: PULSE 62
[2017-12-28 09:15] VITALS: BP 96/65; TEMP 96.8
[2017-12-28] MEDS ORDERED: diazePAM 5 MG TABLET PO SCH (10:00)
[2017-12-28] MEDS: GABAPENTIN 100 MG CAPSULE (FP) PO SCH (10:18)
[2017-12-28] MEDS: PRENATAL VITAMINS W/ FOLIC ACID TABLET (FP) PO SCH (10:18)
[2017-12-28] MEDS: BACITRACIN 0.9 GM PACKET TP SCH (10:18)
[2017-12-28] MEDS: cloNIDine HCL 0.1 MG TABLET PO SCH (10:19)
[2017-12-28] MEDS: FLUoxetine HCL 20 MG CAPSULE (FP) PO SCH (10:19)
[2017-12-28] MEDS: NICOTINE 14 MG/24 HOURS TOPICAL PATCH TD SCH (10:20)
--- NOTE | 2017-12-28 14:13 | PN ---
S Progress Note (SOAP) Subjective: Patient reports mild fatigue and anxiety, denies any other detox symptoms at this time. Objective: PATIENT A & O X 3, OBSERVED AMBULATING ON UNIT. NO ACUTE DISTRESS. 12/28/17 14:08 Vital Signs Temperature 96.8 F L 12/28/17 09:14 Pulse Rate 62 12/28/17 09:14 Respiratory Rate 18 12/28/17 09:14 Blood Pressure 96/65 12/28/17 09:14 O2 Sat by Pulse Oximetry (%) Laboratory Tests 12/24/17 12/25/17 12/25/17 Unknown 07:00 07:00 WBC 5.1 RBC 4.12 Hgb 12.0 D Hct 35.3 L MCV 85.7 MCH 29.0 MCHC 33.9 RDW 14.6 Plt Count 159 D MPV 9.3 Sodium 143 Potassium 3.8 Chloride 107 Carbon Dioxide 28 Anion Gap 8 BUN 22 H D Creatinine 0.8 D Creat Clearance w eGFR > 60 Random Glucose 118 H D Calcium 8.5 Total Bilirubin 0.3 D AST 15 D ALT 16 Alkaline Phosphatase 92 Total Protein 6.5 D Albumin 2.8 L Urine Color Dkyellow Urine Appearance Clear Urine pH 5.0 D Ur Specific [place] 1.032 Urine Protein Negative Urine Glucose (UA) Negative Urine Ketones Negative Urine Blood Negative Urine Nitrite Negative Urine Bilirubin Negative Urine Urobilinogen 4.0 e.u/dl Ur Leukocyte Esterase Trace Urine WBC (Auto) 8 Urine RBC (Auto) None Ur Epithelial Cells Rare Urine Mucus Many RPR Titer 12/25/17 07:00 WBC RBC Hgb Hct MCV MCH MCHC RDW Plt Count MPV Sodium Potassium Chloride Carbon Dioxide Anion Gap BUN Creatinine Creat Clearance w eGFR Random Glucose Calcium Total Bilirubin AST ALT Alkaline Phosphatase Total Protein Albumin Urine Color Urine Appearance Urine pH Ur Specific [place] Urine Protein Urine Glucose (UA) Urine Ketones Urine Blood Urine Nitrite Urine Bilirubin Urine Urobilinogen Ur Leukocyte Esterase Urine WBC (Auto) Urine RBC (Auto) Ur Epithelial Cells Urine Mucus RPR Titer Nonreactive LABS NOTED. Assessment: 12/28/17 14:12 COMPLETION OF DETOX REGIMEN. Plan: PATIENT SCHEDULED FOR DISCHARGE FROM DETOX UNIT TODAY. PATIENT SCHEDULED TO GO TO [facility] FOR AFTERCARE.
--- NOTE | 2017-12-28 14:21 | DS ---
[facility] Detox Discharge Summary Admission Date: 12/24/17 Discharge Date: 12/28/17 - History Present History: Cannabis Dependence, Opioid Dependence, Sedative Dependence, MMTP Additional Comments: PATIENT GOING TO [facility] (Madie CHIRINOS.) FOR AFTERCARE. PATIENT WAS TAKEN FROM DETOX UNIT TO REHAB UNIT IN STABLE MEDICAL CONDITION. Pertinent Past History: History of Bipolar Disorder, Hep C Treated), Depression, MMTP, PTSD, History of Seizure, History of Trauma to Head, Nicotine Dependence, History of Anemia, History of Endocarditis, History of Borderline Personality Disorder. - Physical Exam Results Vital Signs: Vital Signs Temperature 96.8 F L 12/28/17 09:14 Pulse Rate 62 12/28/17 09:14 Respiratory Rate 18 12/28/17 09:14 Blood Pressure 96/65 12/28/17 09:14 O2 Sat by Pulse Oximetry (%) Pertinent Admission Physical Exam Findings: WITHDRAWAL SYMPTOMS. Laboratory Tests 12/24/17 12/25/17 12/25/17 Unknown 07:00 07:00 WBC 5.1 RBC 4.12 Hgb 12.0 D Hct 35.3 L MCV 85.7 MCH 29.0 MCHC 33.9 RDW 14.6 Plt Count 159 D MPV 9.3 Sodium 143 Potassium 3.8 Chloride 107 Carbon Dioxide 28 Anion Gap 8 BUN 22 H D Creatinine 0.8 D Creat Clearance w eGFR > 60 Random Glucose 118 H D Calcium 8.5 Total Bilirubin 0.3 D AST 15 D ALT 16 Alkaline Phosphatase 92 Total Protein 6.5 D Albumin 2.8 L Urine Color Dkyellow Urine Appearance Clear Urine pH 5.0 D Ur Specific Anthony 1.032 Urine Protein Negative Urine Glucose (UA) Negative Urine Ketones Negative Urine Blood Negative Urine Nitrite Negative Urine Bilirubin Negative Urine Urobilinogen 4.0 e.u/dl Ur Leukocyte Esterase Trace Urine WBC (Auto) 8 Urine RBC (Auto) None Ur Epithelial Cells Rare Urine Mucus Many RPR Titer 12/25/17 07:00 WBC RBC Hgb Hct MCV MCH MCHC RDW Plt Count MPV Sodium Potassium Chloride Carbon Dioxide Anion Gap BUN Creatinine Creat Clearance w eGFR Random Glucose Calcium Total Bilirubin AST ALT Alkaline Phosphatase Total Protein Albumin Urine Color Urine Appearance Urine pH Ur Specific Anthony Urine Protein Urine Glucose (UA) Urine Ketones Urine Blood Urine Nitrite Urine Bilirubin Urine Urobilinogen Ur Leukocyte Esterase Urine WBC (Auto) Urine RBC (Auto) Ur Epithelial Cells Urine Mucus RPR Titer Nonreactive LABS NOTED. - Treatment Hospital Course: Detox Protocol Followed, Detoxed Safely, Responded well, Discharged Condition Good, Rehab Referral Accepted Patient has Accepted a Rehab Referral to: [facility] ([facility] N.[facility].) . - Medication Discharge Medications: Ambulatory Orders Prazosin HCl [Minipress -] 5 mg PO HS #30 capsule 06/01/15 Gabapentin [Neurontin -] 200 mg PO Q8H 01/31/17 Fluoxetine HCl [Prozac] 40 mg PO 12/25/17 Clonidine HCl [Catapres] 0.2 mg PO DAILY 12/28/17 propRANOLol HCL [Inderal -] 10 mg PO DAILY 12/28/17 - Diagnosis (1) Nicotine dependence Status: Acute Qualifiers: Nicotine product type: cigarettes Substance use status: in withdrawal Qualified Code(s): F17.213 - Nicotine dependence, cigarettes, with withdrawal (2) Sedative/hypnotic withdrawal without complication Status: Acute (3) Hepatitis C Status: Chronic Qualifiers: Viral hepatitis chronicity: chronic Hepatic coma status: without hepatic coma Qualified Code(s): B18.2 - Chronic viral hepatitis C (4) Methadone maintenance therapy patient Status: Chronic (5) Seizure Status: Suspected (6) Head injury due to trauma Status: Acute Qualifiers: Encounter type: sequela Qualified Code(s): S09.90XS - Unspecified injury of head, sequela (7) Marijuana dependence Status: Acute (8) Substance induced mood disorder Status: Acute (9) Borderline personality disorder Status: Chronic (10) PTSD (post-traumatic stress disorder) Status: Chronic - AMA Did Patient Leave Against Medical Advice: No
== END 2017-12-28 12:27 | disposition home or self-care (01) | DRG 773 ==
LOC: YASAS 11:36 → Y3N 15:22
PROVIDERS: ADMIT Family Medicine Addiction Medicine; ATTEND Family Medicine Addiction Medicine
PROC: HZ2ZZZZ Detoxification Services for Substance Abuse Treatment (ICD-10-PCS; principal; 2017-12-24)
DX: F11.23 Opioid dependence with withdrawal (principal); F13.230 Sedative, hypnotic or anxiolytic dependence with withdrawal, uncomplicated; F12.20 Cannabis dependence, uncomplicated; F17.210 Nicotine dependence, cigarettes, uncomplicated; F31.81 Bipolar II disorder; F60.3 Borderline personality disorder; B18.2 Chronic viral hepatitis C; Z86.2 Personal history of diseases of the blood and blood-forming organs and certain disorders involving the immune mechanism; Z91.5 Personal history of self-harm; S09.8XXA Other specified injuries of head, initial encounter; X58.XXXA Exposure to other specified factors, initial encounter; Y93.89 Activity, other specified; Y92.89 Other specified places as the place of occurrence of the external cause; Y99.8 Other external cause status
CPT/HCPCS: 36415; 80053; 81003; 81015; 85027; 86593; 93005; 93010; J0735

== ENCOUNTER 2017-12-24 16:27 | Emergency (ER) | payer OTHER ==
[2017-12-24 16:54] VITALS: BP 96/60; PULSE 75; BMI 22.8
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
[2017-12-24 19:20] VITALS: TEMP 97.8
[2017-12-24] MEDS ORDERED: TETANUS AND DIPHTHERIA TOXOID 0.5 ML DISP.SYRIN IM ONE (19:37)
== END 2017-12-24 19:32 | disposition home or self-care (01) ==
LOC: JER 16:27
PROC: 3E0234Z Introduction of Serum, Toxoid and Vaccine into Muscle, Percutaneous Approach (ICD-10-PCS; principal; 2017-12-24)
DX: S00.01XA Abrasion of scalp, initial encounter (principal); X99.0XXA Assault by sharp glass, initial encounter; Y93.89 Activity, other specified; Y92.89 Other specified places as the place of occurrence of the external cause; G40.909 Epilepsy, unspecified, not intractable, without status epilepticus; D64.9 Anemia, unspecified; F11.23 Opioid dependence with withdrawal; F14.20 Cocaine dependence, uncomplicated; F13.20 Sedative, hypnotic or anxiolytic dependence, uncomplicated; Z59.0 Homelessness
CPT/HCPCS: 70450-TC; 90471; 99282-25

== ENCOUNTER 2017-12-28 12:36 | Inpatient (IN) | payer OTHER ==
[2017-12-28] MEDS ORDERED: LOPERAMIDE HCL 2 MG CAPSULE PO PRN (14:25)
[2017-12-28] MEDS ORDERED: IBUPROFEN 400 MG TABLET (FP) PO PRN (14:25)
[2017-12-28] MEDS ORDERED: MENTHOL/PHENOL 1 EACH UD MM PRN (14:25)
[2017-12-28] MEDS ORDERED: ACETAMINOPHEN 325 MG TABLET (FP) PO PRN (14:25)
[2017-12-28] MEDS ORDERED: MAG HYDROX/AL HYDROX/SIMETH 30 ML UNIT-DOSE CUP PO PRN (14:25)
[2017-12-28] MEDS ORDERED: NICOTINE POLACRILEX 2 MG GUM BUC PRN (14:25)
[2017-12-28] MEDS ORDERED: MAGNESIUM CITRATE 300 ML BOTTLE PO PRN (14:25)
[2017-12-28] MEDS ORDERED: MAGNESIUM HYDROX 2400MG/30ML ORAL SUSPENSION 30 ML CUP PO PRN (14:25)
[2017-12-28] MEDS ORDERED: guaiFENesin/D-METHORPHAN HB 10 ML UNIT-DOSE CUPS PO PRN (14:25)
[2017-12-28] MEDS ORDERED: P-EPHED 60MG/TRIPROLIDI 2.5MG TABLET PO PRN (14:25)
--- NOTE | 2017-12-28 14:26 | HP ---
[facility] Re[facility] Assess/Revision - Admission History Admitted to Rehab from: [facility] Date of Admission to Rehab: 12/28/2017 - Vital signs Vital Signs: Vital Signs Period Temp Pulse Resp BP Sys/[place] Pulse Ox Last 24 Hr 98.9 F 95 18 108/69 - Findings Detox History & Physical reviewed: Yes Concur with findings: Yes Comments/Additional Findings: PATIENT'S MEDICAL / MEDICATION HISTORY REVIEWED PRIOR TO DISCHARGE FROM DETOX UNIT. PATIENT WAS DISCHARGED FROM DETOX UNIT TO BE TAKEN TO REHAB UNIT IN STABLE MEDICAL CONDITION. Inpatient Rehab Admission - Initial Determination Are CD services needed?: Yes Free of communicable disease: Yes Not in need of hospitalization: Yes - Rehab Admission Criteria Previous failed treatment: Yes Comorbidities: Yes Patient is meeting Inpatient Rehab admission criteria:: Yes
--- NOTE | 2017-12-28 14:53 | PN ---
[facility] Progress Note Note: Called by nursing staff to order medications for newly admitted patient from 3N. While on 3N, patient was seen by TOBIN Maddox and was prescribed Prozac 40 mg po daily, Gabapentin 200 mg po daily, Prazosin 5 mg po HS,and Clonodine o.1 mg po daily. These medications as they were ordered by PNP will be continued
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
[2017-12-28] MEDS ORDERED: MELATONIN 5 MG TABLETS PO PRN (22:00)
[2017-12-28] MEDS: PRAZOSIN HCL 5 MG CAPSULE PO SCH (22:03)
[2017-12-28] MEDS: THIAMINE HCL 100 MG TABLET (FP) PO SCH (22:03)
[2017-12-29] MEDS ORDERED: METHADONE HCL 40 MG DISPERSABLE TABLET ONE (05:22)
[2017-12-29] MEDS ORDERED: METHADONE HCL 10 MG TABLET ONE (05:22)
[2017-12-29] MEDS ORDERED: METHADONE HCL 10 MG TABLET PO SCH (06:00)
[2017-12-29] MEDS: METHADONE 80 MG, METHADONE 10 MG PO SCH (06:32)
[2017-12-29] MEDS: NICOTINE 14 MG/24 HOURS TOPICAL PATCH TD SCH (11:07)
[2017-12-29] MEDS: GABAPENTIN 100 MG CAPSULE (FP) PO SCH (11:07)
[2017-12-29] MEDS: PRENATAL VITAMINS W/ FOLIC ACID TABLET (FP) PO SCH (11:07)
[2017-12-29] MEDS: cloNIDine HCL 0.1 MG TABLET PO SCH (11:08)
[2017-12-29] MEDS: FLUoxetine HCL 20 MG CAPSULE (FP) PO SCH (11:08)
[2017-12-29] MEDS: PRAZOSIN HCL 5 MG CAPSULE PO SCH (21:31)
[2017-12-29] MEDS: THIAMINE HCL 100 MG TABLET (FP) PO SCH (21:31)
[2017-12-30] MEDS ORDERED: METHADONE HCL 10 MG TABLET ONE (04:33)
[2017-12-30] MEDS ORDERED: METHADONE HCL 40 MG DISPERSABLE TABLET ONE (04:33)
[2017-12-30] MEDS: METHADONE 80 MG, METHADONE 10 MG PO SCH (06:10)
[2017-12-30] MEDS: PRENATAL VITAMINS W/ FOLIC ACID TABLET (FP) PO SCH (10:44)
[2017-12-30] MEDS: NICOTINE 14 MG/24 HOURS TOPICAL PATCH TD SCH (10:44)
[2017-12-30] MEDS: cloNIDine HCL 0.1 MG TABLET PO SCH (10:44)
[2017-12-30] MEDS: FLUoxetine HCL 20 MG CAPSULE (FP) PO SCH (10:44)
[2017-12-30] MEDS: GABAPENTIN 100 MG CAPSULE (FP) PO SCH (10:44)
[2017-12-31] MEDS: PRAZOSIN HCL 5 MG CAPSULE PO SCH ×2 (00:30→21:32)
[2017-12-31] MEDS: THIAMINE HCL 100 MG TABLET (FP) PO SCH ×2 (00:30→21:32)
[2017-12-31] MEDS ORDERED: METHADONE HCL 10 MG TABLET ONE (05:15)
[2017-12-31] MEDS ORDERED: METHADONE HCL 40 MG DISPERSABLE TABLET ONE (05:15)
[2017-12-31 06:38] VITALS: TEMP 97.9
[2017-12-31] MEDS: METHADONE 80 MG, METHADONE 10 MG PO SCH (06:38)
[2017-12-31] MEDS: GABAPENTIN 100 MG CAPSULE (FP) PO SCH (10:26)
[2017-12-31] MEDS: FLUoxetine HCL 20 MG CAPSULE (FP) PO SCH (10:27)
[2017-12-31] MEDS: cloNIDine HCL 0.1 MG TABLET PO SCH (10:27)
[2017-12-31] MEDS: PRENATAL VITAMINS W/ FOLIC ACID TABLET (FP) PO SCH (10:27)
[2017-12-31] MEDS: NICOTINE 14 MG/24 HOURS TOPICAL PATCH TD SCH (10:28)
[2018-01-01] MEDS ORDERED: METHADONE HCL 40 MG DISPERSABLE TABLET ONE (04:59)
[2018-01-01] MEDS ORDERED: METHADONE HCL 10 MG TABLET ONE (04:59)
[2018-01-01] MEDS: METHADONE 80 MG, METHADONE 10 MG PO SCH (06:27)
[2018-01-01 06:47] VITALS: BP 95/62; PULSE 84
[2018-01-01] MEDS: GABAPENTIN 100 MG CAPSULE (FP) PO SCH (10:28)
[2018-01-01] MEDS: PRENATAL VITAMINS W/ FOLIC ACID TABLET (FP) PO SCH (10:28)
[2018-01-01] MEDS: NICOTINE 14 MG/24 HOURS TOPICAL PATCH TD SCH (10:29)
[2018-01-01] MEDS: FLUoxetine HCL 20 MG CAPSULE (FP) PO SCH (10:29)
[2018-01-01] MEDS: cloNIDine HCL 0.1 MG TABLET PO SCH (10:30)
--- NOTE | 2018-01-01 16:35 | PN ---
[facility] Progress Note Note: Received call from the Nurse on stating that the patient decided to sign out AMA.
== END 2018-01-01 11:30 | disposition left against medical advice (07) | DRG 770 ==
LOC: YASAS 12:36 → Y5N 12:37
PROVIDERS: ADMIT Psychiatry & Neurology Psychiatry; ATTEND Psychiatry & Neurology Psychiatry
PROC: HZ42ZZZ Group Counseling for Substance Abuse Treatment, Cognitive-Behavioral (ICD-10-PCS; principal; 2017-12-28)
DX: F11.20 Opioid dependence, uncomplicated (principal); F14.20 Cocaine dependence, uncomplicated; F12.20 Cannabis dependence, uncomplicated; F17.213 Nicotine dependence, cigarettes, with withdrawal; F19.24 Other psychoactive substance dependence with psychoactive substance-induced mood disorder; F43.10 Post-traumatic stress disorder, unspecified; F60.3 Borderline personality disorder; F31.81 Bipolar II disorder; B18.2 Chronic viral hepatitis C; M54.5 Low back pain; G89.29 Other chronic pain; Z86.69 Personal history of other diseases of the nervous system and sense organs; S09.8XXA Other specified injuries of head, initial encounter; X58.XXXA Exposure to other specified factors, initial encounter; Y93.89 Activity, other specified; Y92.89 Other specified places as the place of occurrence of the external cause; Y99.8 Other external cause status; Z88.1 Allergy status to other antibiotic agents
CPT/HCPCS: J0735

== ENCOUNTER 2018-06-18 11:42 | Inpatient (IN) | payer OTHER ==
[2018-06-18 12:02] VITALS: BMI 22.5
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
[2018-06-18] MEDS ORDERED: P-EPHED 60MG/TRIPROLIDI 2.5MG TABLET PO PRN (13:00)
[2018-06-18] MEDS ORDERED: guaiFENesin/D-METHORPHAN HB 10 ML UNIT-DOSE CUPS PO PRN (13:00)
[2018-06-18] MEDS ORDERED: ACETAMINOPHEN 325 MG TABLET (FP) PO PRN (13:00)
[2018-06-18] MEDS ORDERED: MAGNESIUM HYDROX 2400MG/30ML ORAL SUSPENSION 30 ML CUP PO PRN (13:00)
[2018-06-18] MEDS ORDERED: IBUPROFEN 400 MG TABLET (FP) PO PRN (13:00)
[2018-06-18] MEDS ORDERED: MENTHOL/PHENOL 1 EACH UD MM PRN (13:00)
[2018-06-18] MEDS ORDERED: MAG HYDROX/AL HYDROX/SIMETH 30 ML UNIT-DOSE CUP PO PRN (13:00)
[2018-06-18] MEDS ORDERED: MAGNESIUM CITRATE 300 ML BOTTLE PO PRN (13:00)
[2018-06-18] MEDS ORDERED: LOPERAMIDE HCL 2 MG CAPSULE PO PRN (13:00)
[2018-06-18] MEDS: NICOTINE 21 MG/24 HOURS TOPICAL PATCH TD SCH (14:16)
[2018-06-18] MEDS: hydrOXYzine PAMOATE 25 MG CAPSULE (FP) PO PRN (14:16)
[2018-06-18] MEDS ORDERED: BACITRACIN 0.9 GM PACKET ONE (14:18)
[2018-06-18 14:43] LABS: HEMATOCRIT 35.9 % (35.4-49); HEMOGLOBIN 12.5 GM/dL (11.7-16.9); MCHC 34.9 g/dl (32.0-35.9); MEAN CELL VOLUME 83.2 fl (80-96); MEAN PLT VOLUME 9.1 fl (7.5-11.1); PLATELET COUNT 222 K/MM3 (134-434); RBC 4.32 M/mm3 (4.00-5.60); RDW 14.2 % (11.9-15.9); WHITE BLOOD COUNT 5.5 K/mm3 (4.0-10.0)
[2018-06-18 15:00] LABS: ALBUMIN 3.4 g/dl (3.4-5.0); ALK PHOS 104 U/L (45-117); ANION GAP 6 MMOL/L (8-16); BILIRUBIN,TOTAL 0.2 mg/dL (0.2-1); BLOOD UREA NITROGEN 23 mg/dL (7-18); CALCIUM 8.7 mg/dL (8.5-10.1); CHLORIDE 106 mmol/L (98-107); CO2 30 mmol/L (21-32); CREATININE 0.8 mg/dL (0.55-1.3); GLUCOSE,RANDOM 116 mg/dL (74-106); POTASSIUM 3.9 mmol/L (3.5-5.1); SGOT/AST 16 U/L (15-37); SGPT/ALT 13 U/L (13-61); SODIUM 143 mmol/L (136-145); TOT PROT 7.7 g/dl (6.4-8.2)
[2018-06-18 17:36] LABS: URINE APPEARANCE CLOUDY; URINE BILIRUBIN NEGATIVE (<2.0 mg/dL); URINE COLOR DKYELLOW; URINE GLUCOSE (UA) NEGATIVE (NEGATIVE); URINE KETONE NEGATIVE (NEGATIVE); URINE LEUK ESTERASE 2+ (NEGATIVE); URINE NITRITE NEGATIVE (NEGATIVE); URINE PROTEIN 1+ (NEGATIVE); URINE UROBILINOGEN NEGATIVE mg/dL (0.2-1.0)
[2018-06-18 17:45] LABS: EPI CELLS RARE /HPF (FEW); URINE MUCUS MANY
[2018-06-19] MEDS: MELATONIN 5 MG TABLETS PO PRN (00:18)
[2018-06-19] MEDS: hydrOXYzine PAMOATE 25 MG CAPSULE (FP) PO PRN (00:18)
[2018-06-19] MEDS: BACITRACIN 0.9 GM PACKET TP SCH ×3 (00:19→21:14)
[2018-06-19] MEDS: THIAMINE HCL 100 MG TABLET (FP) PO SCH ×2 (00:19→21:14)
[2018-06-19] MEDS ORDERED: METHADONE HCL 40 MG DISPERSABLE TABLET ONE (04:30)
[2018-06-19] MEDS ORDERED: METHADONE HCL 10 MG TABLET ONE (04:30)
[2018-06-19] MEDS ORDERED: METHADONE HCL 10 MG TABLET PO SCH (06:00)
[2018-06-19] MEDS: METHADONE 80 MG, METHADONE 10 MG PO SCH (06:13)
[2018-06-19] MEDS: NICOTINE 21 MG/24 HOURS TOPICAL PATCH TD SCH (09:56)
[2018-06-19] MEDS: PRENATAL VITAMINS W/ FOLIC ACID TABLET (FP) PO SCH (09:56)
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
[2018-06-19] MEDS: FLUoxetine HCL 20 MG CAPSULE (FP) PO SCH (14:39)
[2018-06-19] MEDS: GABAPENTIN 100 MG CAPSULE (FP) PO SCH ×2 (14:40→21:14)
[2018-06-19] MEDS: cloNIDine HCL 0.1 MG TABLET PO SCH (14:42)
[2018-06-19] MEDS: PRAZOSIN HCL 5 MG CAPSULE PO SCH (21:14)
[2018-06-20] MEDS ORDERED: METHADONE HCL 10 MG TABLET ONE (04:00)
[2018-06-20] MEDS ORDERED: METHADONE HCL 40 MG DISPERSABLE TABLET ONE (04:00)
[2018-06-20] MEDS: GABAPENTIN 100 MG CAPSULE (FP) PO SCH ×3 (06:01→21:21)
[2018-06-20] MEDS: METHADONE 80 MG, METHADONE 10 MG PO SCH (06:01)
[2018-06-20] MEDS: PRENATAL VITAMINS W/ FOLIC ACID TABLET (FP) PO SCH (09:18)
[2018-06-20] MEDS: cloNIDine HCL 0.1 MG TABLET PO SCH (09:18)
[2018-06-20] MEDS: NICOTINE 21 MG/24 HOURS TOPICAL PATCH TD SCH (09:19)
[2018-06-20] MEDS: BACITRACIN 0.9 GM PACKET TP SCH ×2 (09:19→21:21)
[2018-06-20] MEDS: FLUoxetine HCL 20 MG CAPSULE (FP) PO SCH (09:19)
[2018-06-20] MEDS: hydrOXYzine PAMOATE 25 MG CAPSULE (FP) PO PRN ×2 (09:19→21:21)
[2018-06-20] MEDS: THIAMINE HCL 100 MG TABLET (FP) PO SCH (21:21)
[2018-06-20] MEDS: MELATONIN 5 MG TABLETS PO PRN (21:21)
[2018-06-20] MEDS ORDERED: PT OWN MED DRAWER 7, Y5N ONE (21:24)
[2018-06-20] MEDS: PRAZOSIN HCL 5 MG CAPSULE PO SCH (21:24)
[2018-06-21] MEDS ORDERED: METHADONE HCL 10 MG TABLET ONE (03:43)
[2018-06-21] MEDS ORDERED: METHADONE HCL 40 MG DISPERSABLE TABLET ONE (03:43)
[2018-06-21] MEDS: METHADONE 80 MG, METHADONE 10 MG PO SCH (05:53)
[2018-06-21] MEDS: GABAPENTIN 100 MG CAPSULE (FP) PO SCH ×3 (05:54→21:49)
[2018-06-21] MEDS: hydrOXYzine PAMOATE 25 MG CAPSULE (FP) PO PRN ×2 (05:56→21:49)
[2018-06-21] MEDS: NICOTINE 21 MG/24 HOURS TOPICAL PATCH TD SCH (09:55)
[2018-06-21] MEDS: FLUoxetine HCL 20 MG CAPSULE (FP) PO SCH (09:55)
[2018-06-21] MEDS: PRENATAL VITAMINS W/ FOLIC ACID TABLET (FP) PO SCH (09:56)
[2018-06-21] MEDS: BACITRACIN 0.9 GM PACKET TP SCH ×2 (09:56→21:49)
[2018-06-21] MEDS: cloNIDine HCL 0.1 MG TABLET PO SCH (09:56)
[2018-06-21] MEDS ORDERED: PT OWN MED DRAWER 7, Y5N ONE (19:31)
[2018-06-21] MEDS: THIAMINE HCL 100 MG TABLET (FP) PO SCH (21:49)
[2018-06-21] MEDS: PRAZOSIN HCL 5 MG CAPSULE PO SCH (22:37)
[2018-06-22] MEDS ORDERED: METHADONE HCL 10 MG TABLET ONE (03:12)
[2018-06-22] MEDS ORDERED: METHADONE HCL 40 MG DISPERSABLE TABLET ONE (03:12)
[2018-06-22] MEDS: METHADONE 80 MG, METHADONE 10 MG PO SCH (06:31)
[2018-06-22] MEDS: GABAPENTIN 100 MG CAPSULE (FP) PO SCH ×3 (06:31→21:00)
[2018-06-22] MEDS: BACITRACIN 0.9 GM PACKET TP SCH ×2 (09:48→21:00)
[2018-06-22] MEDS: PRENATAL VITAMINS W/ FOLIC ACID TABLET (FP) PO SCH (09:48)
[2018-06-22] MEDS: FLUoxetine HCL 20 MG CAPSULE (FP) PO SCH (09:49)
[2018-06-22] MEDS: NICOTINE 21 MG/24 HOURS TOPICAL PATCH TD SCH (09:49)
[2018-06-22] MEDS: hydrOXYzine PAMOATE 25 MG CAPSULE (FP) PO PRN (09:50)
[2018-06-22] MEDS: cloNIDine HCL 0.1 MG TABLET PO SCH (10:00)
[2018-06-22] MEDS ORDERED: PT OWN MED DRAWER 7, Y5N ONE (19:32)
[2018-06-22] MEDS: PRAZOSIN HCL 5 MG CAPSULE PO SCH (21:01)
[2018-06-22] MEDS: THIAMINE HCL 100 MG TABLET (FP) PO SCH (21:01)
[2018-06-23] MEDS ORDERED: METHADONE HCL 40 MG DISPERSABLE TABLET ONE (03:05)
[2018-06-23] MEDS ORDERED: METHADONE HCL 10 MG TABLET ONE (03:05)
[2018-06-23] MEDS: METHADONE 80 MG, METHADONE 10 MG PO SCH (06:08)
[2018-06-23] MEDS: GABAPENTIN 100 MG CAPSULE (FP) PO SCH ×3 (06:08→21:42)
[2018-06-23] MEDS: NICOTINE 21 MG/24 HOURS TOPICAL PATCH TD SCH (09:26)
[2018-06-23] MEDS: cloNIDine HCL 0.1 MG TABLET PO SCH (09:26)
[2018-06-23] MEDS: FLUoxetine HCL 20 MG CAPSULE (FP) PO SCH (09:26)
[2018-06-23] MEDS: PRENATAL VITAMINS W/ FOLIC ACID TABLET (FP) PO SCH (09:26)
[2018-06-23] MEDS: BACITRACIN 0.9 GM PACKET TP SCH ×2 (09:26→21:42)
[2018-06-23] MEDS ORDERED: PT OWN MED DRAWER 7, Y5N ONE (20:18)
[2018-06-23] MEDS: PRAZOSIN HCL 5 MG CAPSULE PO SCH (21:42)
[2018-06-23] MEDS: THIAMINE HCL 100 MG TABLET (FP) PO SCH (21:42)
[2018-06-23] MEDS: hydrOXYzine PAMOATE 25 MG CAPSULE (FP) PO PRN (21:43)
[2018-06-24] MEDS ORDERED: METHADONE HCL 10 MG TABLET ONE (04:15)
[2018-06-24] MEDS ORDERED: METHADONE HCL 40 MG DISPERSABLE TABLET ONE (04:15)
[2018-06-24] MEDS: METHADONE 80 MG, METHADONE 10 MG PO SCH (05:52)
[2018-06-24] MEDS: GABAPENTIN 100 MG CAPSULE (FP) PO SCH ×3 (05:53→21:21)
[2018-06-24] MEDS: BACITRACIN 0.9 GM PACKET TP SCH ×2 (10:26→21:20)
[2018-06-24] MEDS: NICOTINE 21 MG/24 HOURS TOPICAL PATCH TD SCH (10:26)
[2018-06-24] MEDS: cloNIDine HCL 0.1 MG TABLET PO SCH (10:27)
[2018-06-24] MEDS: FLUoxetine HCL 20 MG CAPSULE (FP) PO SCH (10:27)
[2018-06-24] MEDS: PRENATAL VITAMINS W/ FOLIC ACID TABLET (FP) PO SCH (10:27)
[2018-06-24] MEDS: THIAMINE HCL 100 MG TABLET (FP) PO SCH (21:21)
[2018-06-24] MEDS: PRAZOSIN HCL 5 MG CAPSULE PO SCH (21:21)
[2018-06-25] MEDS ORDERED: METHADONE HCL 10 MG TABLET ONE (04:08)
[2018-06-25] MEDS ORDERED: METHADONE HCL 40 MG DISPERSABLE TABLET ONE (04:09)
[2018-06-25] MEDS: METHADONE 80 MG, METHADONE 10 MG PO SCH (05:57)
[2018-06-25] MEDS: GABAPENTIN 100 MG CAPSULE (FP) PO SCH ×3 (05:58→21:08)
[2018-06-25] MEDS ORDERED: METHADONE HCL 10 MG TABLET PO SCH (06:00)
[2018-06-25] MEDS: PRENATAL VITAMINS W/ FOLIC ACID TABLET (FP) PO SCH (09:52)
[2018-06-25] MEDS: FLUoxetine HCL 20 MG CAPSULE (FP) PO SCH (09:52)
[2018-06-25] MEDS: BACITRACIN 0.9 GM PACKET TP SCH ×2 (09:52→21:08)
[2018-06-25] MEDS: NICOTINE 21 MG/24 HOURS TOPICAL PATCH TD SCH (09:52)
[2018-06-25] MEDS: cloNIDine HCL 0.1 MG TABLET PO SCH (09:52)
[2018-06-25] MEDS: hydrOXYzine PAMOATE 25 MG CAPSULE (FP) PO PRN ×2 (09:52→21:08)
[2018-06-25] MEDS: THIAMINE HCL 100 MG TABLET (FP) PO SCH (21:09)
[2018-06-25] MEDS: PRAZOSIN HCL 5 MG CAPSULE PO SCH (21:55)
[2018-06-26] MEDS ORDERED: METHADONE HCL 40 MG DISPERSABLE TABLET ONE (04:12)
[2018-06-26] MEDS ORDERED: METHADONE HCL 10 MG TABLET ONE (04:12)
[2018-06-26] MEDS: METHADONE 80 MG, METHADONE 10 MG PO SCH (06:11)
[2018-06-26] MEDS: GABAPENTIN 100 MG CAPSULE (FP) PO SCH ×3 (06:11→21:17)
[2018-06-26] MEDS: NICOTINE 21 MG/24 HOURS TOPICAL PATCH TD SCH (09:50)
[2018-06-26] MEDS: BACITRACIN 0.9 GM PACKET TP SCH ×2 (09:50→21:17)
[2018-06-26] MEDS: hydrOXYzine PAMOATE 25 MG CAPSULE (FP) PO PRN ×2 (09:50→21:20)
[2018-06-26] MEDS: cloNIDine HCL 0.1 MG TABLET PO SCH (09:50)
[2018-06-26] MEDS: PRENATAL VITAMINS W/ FOLIC ACID TABLET (FP) PO SCH (09:50)
[2018-06-26] MEDS: FLUoxetine HCL 20 MG CAPSULE (FP) PO SCH (09:50)
[2018-06-26] MEDS ORDERED: PT OWN MED DRAWER 7, Y5N ONE (19:18)
[2018-06-26] MEDS: THIAMINE HCL 100 MG TABLET (FP) PO SCH (21:17)
[2018-06-26] MEDS: PRAZOSIN HCL 5 MG CAPSULE PO SCH (21:17)
[2018-06-27] MEDS ORDERED: METHADONE HCL 10 MG TABLET ONE (02:50)
[2018-06-27] MEDS ORDERED: METHADONE HCL 40 MG DISPERSABLE TABLET ONE (02:50)
[2018-06-27] MEDS: METHADONE 80 MG, METHADONE 10 MG PO SCH (06:39)
[2018-06-27] MEDS: GABAPENTIN 100 MG CAPSULE (FP) PO SCH ×3 (06:40→21:26)
[2018-06-27] MEDS: PRENATAL VITAMINS W/ FOLIC ACID TABLET (FP) PO SCH (10:14)
[2018-06-27] MEDS: NICOTINE 21 MG/24 HOURS TOPICAL PATCH TD SCH (10:14)
[2018-06-27] MEDS: cloNIDine HCL 0.1 MG TABLET PO SCH (10:14)
[2018-06-27] MEDS: FLUoxetine HCL 20 MG CAPSULE (FP) PO SCH (10:14)
[2018-06-27] MEDS: BACITRACIN 0.9 GM PACKET TP SCH ×2 (10:14→21:26)
[2018-06-27] MEDS: THIAMINE HCL 100 MG TABLET (FP) PO SCH (21:26)
[2018-06-27] MEDS: PRAZOSIN HCL 5 MG CAPSULE PO SCH (21:27)
[2018-06-27] MEDS: hydrOXYzine PAMOATE 25 MG CAPSULE (FP) PO PRN (21:27)
[2018-06-28] MEDS ORDERED: METHADONE HCL 10 MG TABLET ONE (03:45)
[2018-06-28] MEDS ORDERED: METHADONE HCL 40 MG DISPERSABLE TABLET ONE (03:45)
[2018-06-28] MEDS: METHADONE 80 MG, METHADONE 10 MG PO SCH (06:32)
[2018-06-28] MEDS: GABAPENTIN 100 MG CAPSULE (FP) PO SCH ×3 (06:32→21:23)
[2018-06-28] MEDS: hydrOXYzine PAMOATE 25 MG CAPSULE (FP) PO PRN ×2 (09:54→21:23)
[2018-06-28] MEDS: BACITRACIN 0.9 GM PACKET TP SCH ×2 (09:54→21:22)
[2018-06-28] MEDS: NICOTINE 21 MG/24 HOURS TOPICAL PATCH TD SCH (09:54)
[2018-06-28] MEDS: PRENATAL VITAMINS W/ FOLIC ACID TABLET (FP) PO SCH (09:54)
[2018-06-28] MEDS: cloNIDine HCL 0.1 MG TABLET PO SCH (09:54)
[2018-06-28] MEDS: FLUoxetine HCL 20 MG CAPSULE (FP) PO SCH (09:54)
[2018-06-28] MEDS: PRAZOSIN HCL 5 MG CAPSULE PO SCH (21:22)
[2018-06-28] MEDS: THIAMINE HCL 100 MG TABLET (FP) PO SCH (21:22)
[2018-06-29] MEDS ORDERED: METHADONE HCL 10 MG TABLET ONE (03:13)
[2018-06-29] MEDS ORDERED: METHADONE HCL 40 MG DISPERSABLE TABLET ONE (03:13)
[2018-06-29] MEDS: METHADONE 80 MG, METHADONE 10 MG PO SCH (06:19)
[2018-06-29] MEDS: GABAPENTIN 100 MG CAPSULE (FP) PO SCH ×3 (06:19→21:09)
[2018-06-29] MEDS: hydrOXYzine PAMOATE 25 MG CAPSULE (FP) PO PRN ×2 (09:58→21:09)
[2018-06-29] MEDS: BACITRACIN 0.9 GM PACKET TP SCH ×2 (09:58→21:09)
[2018-06-29] MEDS: cloNIDine HCL 0.1 MG TABLET PO SCH (09:58)
[2018-06-29] MEDS: FLUoxetine HCL 20 MG CAPSULE (FP) PO SCH (09:58)
[2018-06-29] MEDS: PRENATAL VITAMINS W/ FOLIC ACID TABLET (FP) PO SCH (09:59)
[2018-06-29] MEDS: NICOTINE 21 MG/24 HOURS TOPICAL PATCH TD SCH (09:59)
[2018-06-29] MEDS: THIAMINE HCL 100 MG TABLET (FP) PO SCH (21:10)
[2018-06-29] MEDS: PRAZOSIN HCL 5 MG CAPSULE PO SCH (21:10)
[2018-06-30] MEDS ORDERED: METHADONE HCL 10 MG TABLET ONE (02:42)
[2018-06-30] MEDS ORDERED: METHADONE HCL 40 MG DISPERSABLE TABLET ONE (02:42)
[2018-06-30] MEDS: METHADONE 80 MG, METHADONE 10 MG PO SCH (06:07)
[2018-06-30] MEDS: GABAPENTIN 100 MG CAPSULE (FP) PO SCH ×2 (06:08→14:22)
[2018-06-30 07:00] VITALS: TEMP 97.5
[2018-06-30 09:31] VITALS: BP 106/74; PULSE 88
[2018-06-30] MEDS: NICOTINE 21 MG/24 HOURS TOPICAL PATCH TD SCH (10:07)
[2018-06-30] MEDS: cloNIDine HCL 0.1 MG TABLET PO SCH (10:07)
[2018-06-30] MEDS: BACITRACIN 0.9 GM PACKET TP SCH (10:07)
[2018-06-30] MEDS: PRENATAL VITAMINS W/ FOLIC ACID TABLET (FP) PO SCH (10:07)
[2018-06-30] MEDS: FLUoxetine HCL 20 MG CAPSULE (FP) PO SCH (10:07)
[2018-06-30] MEDS: hydrOXYzine PAMOATE 25 MG CAPSULE (FP) PO PRN (10:07)
--- NOTE | 2018-06-30 15:36 | PN ---
[facility] Progress Note Note: Psychiatry Attending's on-call note : Called by nurse. Informed of patient's decision to leave the program. Spoke to patient, via telephone, to explore his reasons. " I am leaving for personal reasons. I am not staying ". Patient states that he is on MMTP program at [facility]. Mr Whiteside declares also that he has refills for two months. From his psychiatrist at the methadone program, here at [facility]. Forcer Maker is NOT familiar with the case. Patient is instructed to WAIT for psychiatrist to come to hospital. For a pre-discharge evaluation. Mr Whiteside replies that he does not want to wait for re-evaluation. " I am not going to wait for you. I am leaving. Don't bother to come ". Conversation witnessed by nurse Kris. NO scripts will be issued without examination. Patient is made aware. Reply : " I am coming to my program on Sunday ". Two days from this date. " I don't need scripts ". Mr Whiteside ended the conversation/contact with psychiatrist.
[2018-06-30] MEDS ORDERED: PT OWN MED DRAWER 7, Y5N ONE (15:47)
--- NOTE | 2018-06-30 16:06 | PN ---
[facility] Progress Note Note: informed by nurse that patient does not want to complete treatment,does not want to wait,psychiatrist manager information notified,nursing timber supervisor informed
--- NOTE | 2018-06-30 16:28 | PN ---
[facility] Progress Note Note: Psychiatry Attending's on-call note (follow-up) : Delivery Driver contacted nursing staff via telephone. Informed that Mr Whiteside has already left the unit. Refer to staff's notes for details.
== END 2018-06-30 15:45 | disposition left against medical advice (07) | DRG 770 ==
LOC: YASAS 11:42 → Y3W 13:12
PROVIDERS: ADMIT Psychiatry & Neurology Psychiatry; ATTEND Psychiatry & Neurology Psychiatry
PROC: HZ42ZZZ Group Counseling for Substance Abuse Treatment, Cognitive-Behavioral (ICD-10-PCS; principal; 2018-06-18)
DX: F11.20 Opioid dependence, uncomplicated (principal); F13.20 Sedative, hypnotic or anxiolytic dependence, uncomplicated; F14.20 Cocaine dependence, uncomplicated; F17.210 Nicotine dependence, cigarettes, uncomplicated; F31.81 Bipolar II disorder; F60.9 Personality disorder, unspecified; F43.10 Post-traumatic stress disorder, unspecified; S61.211A Laceration without foreign body of left index finger without damage to nail, initial encounter; Z86.69 Personal history of other diseases of the nervous system and sense organs; Z59.0 Homelessness; W45.8XXA Other foreign body or object entering through skin, initial encounter; Y93.89 Activity, other specified; Y92.238 Other place in hospital as the place of occurrence of the external cause
CPT/HCPCS: 36415; 80053; 81003; 81015; 85027; 86593; 87389; J0735

== ENCOUNTER 2021-12-02 14:19 | Inpatient (IN) | payer OTHER ==
[2021-12-02] MEDS ORDERED: KETOROLAC TROMETHAMINE 30 MG/1 ML VIAL IVPUSH ONE (15:05)
[2021-12-02] MEDS ORDERED: ONDANSETRON 4 MG/2 ML VIAL IVPUSH ONE (15:05)
[2021-12-02] MEDS ORDERED: FAMOTIDINE 20 MG/50 ML IVPB 20 MG/50 ML MG IVPB ONE ×2 (15:05→15:22)
[2021-12-02] MEDS ORDERED: SODIUM CHLORIDE 1,000 ML IV STA (15:05)
[2021-12-02] MEDS ORDERED: ACETAMINOPHEN 1000 MG/100 ML BAG IVPB ONE (15:05)
[2021-12-02] MEDS ORDERED: ONDANSETRON 4 MG/2 ML VIAL ONE (15:21)
[2021-12-02] MEDS ORDERED: ACETAMINOPHEN INJECTION 100 ML IVPB ONE ×2 (15:21→22:09)
[2021-12-02] MEDS ORDERED: KETOROLAC TROMETHAMINE 30 MG/1 ML VIAL ONE (15:21)
[2021-12-02 16:43] LABS: BASO % 0.1 % (0-2.0); EOS % 0.1 % (0-4.5); HEMATOCRIT 32.3 % (35.4-49); LYMPH % 7.3 % (8-40); MCHC 34.2 g/dl (32.0-35.9); MEAN CELL VOLUME 78.8 fl (80-96); MEAN PLT VOLUME 7.5 fl (7.5-11.1); MONO % 5.9 % (3.8-10.2); NEUT % 86.6 % (42.8-82.8); PLATELET COUNT 332 10^3/uL (134-434); RBC 4.09 M/mm3 (4.00-5.60)
[2021-12-02 17:07] LABS: INR 1.28 (0.83-1.09); PROTHROMBIN TIME (PATIENT) 14.7 SEC (9.7-13.0)
[2021-12-02 17:09] LABS: ACTIVATED PTT 33.6 SECONDS (25.2-36.5)
[2021-12-02 17:18] LABS: ALBUMIN 2.3 g/dl (3.4-5.0); BLOOD UREA NITROGEN 11.5 mg/dL (7-18)
[2021-12-02 17:21] LABS: CREATININE 0.6 mg/dL (0.55-1.3); PHOSPHOROUS 4.1 mg/dL (2.5-4.9)
[2021-12-02 17:22] LABS: BILIRUBIN,TOTAL 0.2 mg/dL (0.2-1)
[2021-12-02 17:23] LABS: TOT PROT 8.8 g/dl (6.4-8.2)
[2021-12-02] MEDS ORDERED: CEFTRIAXONE 1,000 MG in DEXTROSE 5%-WATER - 50 ML IVPB ONE (19:11)
[2021-12-02] MEDS ORDERED: metroNIDAZOLE 250 MG TABLET PO ONE (19:12)
[2021-12-02] MEDS ORDERED: CEFTRIAXONE 1 GM/50 ML BAG ONE (19:16)
[2021-12-02] MEDS ORDERED: metroNIDAZOLE 250 MG TABLET ONE (19:16)
[2021-12-02 19:32] LABS: PH,URINE 5.5 (5.0-8.0); URINE APPEARANCE CLEAR; URINE BILIRUBIN NEGATIVE (NEGATIVE); URINE COLOR YELLOW; URINE GLUCOSE (UA) NEGATIVE (NEGATIVE); URINE KETONE NEGATIVE (NEGATIVE); URINE LEUK ESTERASE NEGATIVE (NEGATIVE); URINE NITRITE NEGATIVE (NEGATIVE); URINE PROTEIN NEGATIVE (NEGATIVE)
[2021-12-02] MEDS ORDERED: ONDANSETRON 4 MG/2 ML VIAL IVPUSH PRN (21:36)
[2021-12-02] MEDS ORDERED: SODIUM CHLORIDE 1,000 ML IV SCH (21:45)
[2021-12-02] MEDS ORDERED: morphine SULFATE 4 MG/ML VIAL IVPUSH PRN (21:49)
[2021-12-02] MEDS ORDERED: KETOROLAC TROMETHAMINE 15 MG/ML VIAL ONE (22:09)
[2021-12-02] MEDS: KETOROLAC TROMETHAMINE 15 MG/ML VIAL IVPUSH SCH (22:15)
[2021-12-02] MEDS: ACETAMINOPHEN 1000 MG/100 ML BAG IVPB SCH (22:15)
[2021-12-03] MEDS ORDERED: methaDONE 40 MG, methaDONE 10 MG PO ONE ×3 (00:45→10:00)
[2021-12-03] MEDS: KETOROLAC TROMETHAMINE 15 MG/ML VIAL IVPUSH SCH ×2 (02:44→14:19)
[2021-12-03] MEDS ORDERED: methaDONE HCL 10 MG TABLET (FOR DETOX USE ONLY) PO SCH (09:45)
[2021-12-03] MEDS ORDERED: methaDONE 40 MG, methaDONE 10 MG PO SCH (09:45)
[2021-12-03] MEDS ORDERED: methaDONE HCL 10 MG TABLET (FOR DETOX USE ONLY) PO ONE (10:00)
[2021-12-03] MEDS ORDERED: CEFTRIAXONE 2 GM in DEXTROSE 5%-WATER 100 ML IVPB SCH (10:00)
[2021-12-03] MEDS ORDERED: methaDONE HCL 10 MG TABLET PO ONE (10:00)
[2021-12-03] MEDS ORDERED: CEFTRIAXONE 1 GM in DEXTROSE 5%-WATER - 50 ML IVPB SCH (10:00)
[2021-12-03] MEDS ORDERED: NICOTINE 14 MG/24 HOURS TOPICAL PATCH TD SCH (10:00)
[2021-12-03] MEDS ORDERED: methaDONE HCL 10 MG TABLET ONE (10:12)
[2021-12-03] MEDS ORDERED: methaDONE HCL 40 MG DISPERSABLE TABLET ONE (10:12)
[2021-12-03] MEDS ORDERED: DEXTROSE 5%-WATER 100 ML IVPB ONE (10:13)
[2021-12-03] MEDS ORDERED: ROCURONIUM BROMIDE 50 MG/5 ML SYRINGE ONE ×2 (10:17→11:45)
[2021-12-03] MEDS ORDERED: HYDROmorphone HCl 2 MG/ML VIAL ONE ×5 (10:17→13:22)
[2021-12-03] MEDS ORDERED: MIDAZOLAM HCL 2 MG/2 ML SINGLE DOSE VIAL ONE ×2 (10:18)
[2021-12-03] MEDS ORDERED: PROPOFOL 20 ML ONE ×2 (10:18)
[2021-12-03] MEDS ORDERED: FENTANYL CITRATE/PF 50 MCG/ML VIAL ONE ×2 (10:18)
[2021-12-03] MEDS: ACETAMINOPHEN 1000 MG/100 ML BAG IVPB SCH (10:26)
[2021-12-03] MEDS ORDERED: BUPIVACAINE HCL/PF 0.25% (2.5MG/ML) 10 ML VIAL ONE (10:28)
[2021-12-03] MEDS ORDERED: cefTRIAXone SODIUM 1 GM VIAL IVPB ONE ×2 (12:00→12:23)
[2021-12-03] MEDS ORDERED: SODIUM CHLORIDE 1,000 ML IV SCH (12:15)
[2021-12-03] MEDS ORDERED: ONDANSETRON 4 MG/2 ML VIAL IVPUSH PRN ×2 (12:15→12:45)
[2021-12-03] MEDS ORDERED: NEOSTIGMINE METHYLSULFATE 0.5 MG/ML - 10 ML MDV ONE (12:27)
[2021-12-03] MEDS ORDERED: GLYCOPYRROLATE 0.2 MG/1 ML VIAL ONE (12:27)
[2021-12-03] MEDS ORDERED: LACTATED RINGERS SOLUTION 1,000 ML IV SCH (12:45)
[2021-12-03] MEDS: HYDROmorphone HCL CARPU-JECT 2 MG/1 ML DISP.SYRIN IVPUSH PRN ×3 (12:53→13:23)
[2021-12-03 14:22] VITALS: BP 122/84; PULSE 67
[2021-12-03 14:26] VITALS: TEMP 98.2
[2021-12-03 15:40] LABS: BASO % 0.1 % (0-2.0); EOS % 0.1 % (0-4.5); HEMATOCRIT 30.2 % (35.4-49); HEMOGLOBIN 10.2 GM/dL (11.7-16.9); MCH 26.4 pg (25.7-33.7); MCHC 33.9 g/dl (32.0-35.9); MEAN CELL VOLUME 77.7 fl (80-96); MEAN PLT VOLUME 7.3 fl (7.5-11.1); NEUT % 86.8 % (42.8-82.8); PLATELET COUNT 296 10^3/uL (134-434); RBC 3.89 M/mm3 (4.00-5.60); RDW 14.4 % (11.9-15.9)
[2021-12-03] MEDS ORDERED: KETOROLAC TROMETHAMINE 15 MG/ML VIAL IVPUSH SCH (15:45)
[2021-12-03 16:02] LABS: CALCIUM 8.1 mg/dL (8.5-10.1)
[2021-12-03 16:03] LABS: BLOOD UREA NITROGEN 10.9 mg/dL (7-18); MAGNESIUM 1.6 mg/dL (1.8-2.4)
[2021-12-03 16:06] LABS: CREATININE 0.5 mg/dL (0.55-1.3); PHOSPHOROUS 4.4 mg/dL (2.5-4.9)
[2021-12-03 16:07] LABS: TOT PROT 7.1 g/dl (6.4-8.2)
[2021-12-03 16:08] LABS: BILIRUBIN,TOTAL 0.2 mg/dL (0.2-1)
[2021-12-03 16:19] LABS: ALBUMIN 1.8 g/dl (3.4-5.0)
[2021-12-03 16:38] VITALS: BMI 20.9
[2021-12-03 16:54] LABS: HIV INTERPRETATION NEGATIVE (NEGATIVE)
[2021-12-03] MEDS ORDERED: ACETAMINOPHEN 1000 MG/100 ML BAG IVPB SCH (22:00)
[2021-12-04] MEDS ORDERED: methaDONE HCL 10 MG TABLET PO SCH (06:00)
[2021-12-04] MEDS ORDERED: methaDONE 40 MG, methaDONE 10 MG PO SCH ×2 (06:00)
[2021-12-04] MEDS ORDERED: NICOTINE 14 MG/24 HOURS TOPICAL PATCH TD SCH (10:00)
[2021-12-04] MEDS ORDERED: CEFTRIAXONE 2 GM in DEXTROSE 5%-WATER 100 ML IVPB SCH (10:00)
== END 2021-12-03 18:00 | disposition left against medical advice (07) | DRG 263 ==
LOC: JER 14:19 → JERBED 20:18 → J4S 22:57
PROVIDERS: ADMIT Hospitalist; ATTEND Internal Medicine
PROC: 0FT44ZZ Resection of Gallbladder, Percutaneous Endoscopic Approach (ICD-10-PCS; principal; 2021-12-03 10:17)
DX: K81.0 Acute cholecystitis (principal); D64.9 Anemia, unspecified; F14.10 Cocaine abuse, uncomplicated; F11.10 Opioid abuse, uncomplicated; F31.9 Bipolar disorder, unspecified; F43.10 Post-traumatic stress disorder, unspecified; F12.10 Cannabis abuse, uncomplicated; R00.0 Tachycardia, unspecified; N28.89 Other specified disorders of kidney and ureter; B19.20 Unspecified viral hepatitis C without hepatic coma; Z53.29 Procedure and treatment not carried out because of patient's decision for other reasons
CPT/HCPCS: 0241U-QW; 36415; 76705-TC; 80053; 81003; 83690; 83735; 84100; 85025; 85610; 85730; 86704; 86705; 86803; 86850; 86900; 86901; 87040; 87077; 87081; 87389; 87517; 87522; 88304-TC; 94760; 99285-25